=== PATIENT | male | born 1990 | race African-American/Black ===

== ENCOUNTER 2017-05-16 13:02 | Inpatient (IN) | payer MEDICAID, SELFPAY ==
[~2017-05-16] VITALS: Ht 167.6 cm; Wt 76.7 kg
[~2017-05-16 13:02] MED LIST: DILANTIN100 MG ORAL
[2017-05-16 13:29] VITALS: BP 117/81
[2017-05-16 13:51] LABS: BASOPHILS % (AUTO) 0.5 % (0.0-2.0); EOSINOPHILS % (AUTO) 10.6 % (0.0-3.0); LYMPHOCYTES % (AUTO) 27.9 % (20.0-45.0); MEAN CORPUSCULAR HEMOGLOBIN 28.1 PG (27.0-31.0); MEAN CORPUSCULAR HGB CONC 31.4 G/DL (32.0-36.0); MEAN CORPUSCULAR VOLUME 89 FL (80-99); MEAN PLATELET VOLUME 6.7 FL (6.5-10.1); MONOCYTES % (AUTO) 7.5 % (1.0-10.0); NEUTROPHILS % (AUTO) 53.4 % (45.0-75.0); PLATELET COUNT 510 K/UL (150-450); RED BLOOD COUNT 3.22 M/UL (4.70-6.10); RED CELL DISTRIBUTION WIDTH 15.9 % (11.6-14.8); WHITE BLOOD COUNT 11.6 K/UL (4.8-10.8)
[2017-05-16 14:09] LABS: ALANINE AMINOTRANSFERASE 103 U/L (12-78); ALBUMIN/GLOBULIN RATIO 0.3 (1.0-2.7); ANION GAP 10 mmol/L (5-15); ASPARTATE AMINO TRANSFERASE 175 U/L (15-37); CALCIUM 9.6 MG/DL (8.5-10.1); CARBON DIOXIDE 26 MMOL/L (21-32); CHLORIDE 111 MMOL/L (98-107); CREATININE 0.9 MG/DL (0.55-1.30); GLOMERULAR FILTRATION RATE > 60 mL/min (>60); POTASSIUM 3.9 MMOL/L (3.5-5.1); SODIUM 146 MMOL/L (136-145); TOTAL PROTEIN 8.7 G/DL (6.4-8.2)
[2017-05-16 14:21] LABS: CKMB 3.2 NG/ML (0.0-3.6); INR 1.1 (0.9-1.1); LIPASE 229 U/L (73-393); PROTHROMBIN TIME 11.4 SEC (9.30-11.50)
[2017-05-16] MEDS ORDERED: COLACE100 MG GT (14:55)
[2017-05-16 15:00] VITALS: BP 105/66
[2017-05-16] MEDS ORDERED: DESMOPRESS4 MCG/1 ML SUBQ (15:13)
[2017-05-16] MEDS ORDERED: DULCOLAX10 MG RC (15:14)
[2017-05-16] MEDS ORDERED: LOVENOX10 M4 SUBQ (15:14)
--- NOTE | 2017-05-16 15:15 | Diagnostic Imaging Report ---
Indications: Altered mental status. Soft tissue protrusion in skull Technique: Spiral acquisitions obtained through the brain. Angled axial and coronal 5 x 5 mm slices were reconstructed. Total dose length product 1492 mGycm. CTDI vol(s) 70 mGy. Dose reduction achieved using automated exposure control Comparison: None Findings: There is diffuse cerebral edema. In particular, the cerebellum and brain stem are very low in attenuation, with essentially no dumont-white differentiation. The supratentorial structures are also extremely low in attenuation, but there is some preservation of the dumont-white differentiation. There is complete obliteration of the ventricles and extra-axial CSF spaces. Higher attenuation is seen in the basilar cisterns. While it is possible that this represents subarachnoid blood, is more likely represents normal structures such as there are similar to what against the unusually low attenuation surrounding brain parenchyma. No evidence of subdural or intraparenchymal blood. There is scalp soft tissue swelling in the left high parietal region extending to the midline. This is slightly lower in attenuation and then acute scalp hematoma. The calvarium is intact. There is extensive opacification of the ethmoid and sphenoid sinuses. There is mucosal disease of the bilateral maxillary sinuses. There is extensive probably tissue in the posterior nasopharynx. The orbits are unremarkable. Impression: Findings compatible with diffuse cerebral edema. Complete obliteration of the ventricles and extra-axial CSF spaces. Likely uncal herniation bilaterally Apparent high attenuation material in the basilar cisterns, most likely represents normal structures silhouetted against adjacent low-attenuation brain parenchyma and therefore appearing to be higher in attenuation, the possibility of subarachnoid blood cannot completely ruled out Apparent left parietal scalp hematoma. This is lower in attenuation than the usual acute scalp hematoma, so may be subacute in nature Extensive sinus disease Critical value findings communicated by phone to Dr. Webb in the emergency room at [address] scanner at [facility] is accredited by the [employer] and the scans are performed using protocols designed to limit radiation exposure to as low as reasonably achievable to attain images of sufficient resolution adequate for diagnostic evaluation.
[2017-05-16] MEDS ORDERED: MILK OF MA400 MG/51 GT (15:19)
[2017-05-16] MEDS ORDERED: HYDRALAZINE HCL10 MG ORAL (15:19)
[2017-05-16] MEDS ORDERED: FLEET ENEMA133 ML RECTAL (15:19)
[2017-05-16] MEDS ORDERED: LEVETIRACE100 MG/1 M GT (15:19)
[2017-05-16] MEDS ORDERED: MULTI-DELYN237 ML GT (15:23)
[2017-05-16] MEDS ORDERED: PANTOPRAZOLE SO40 MG GT (15:24)
[2017-05-16] MEDS ORDERED: UTI-STAT L3875 MG/31 GT (15:24)
[2017-05-16] MEDS ORDERED: ACETAMINOP160 MG/51 GT (15:24)
--- NOTE | 2017-05-16 15:24 | Emergency Room Report ---
History of Present Illness General Chief Complaint: General Complaint Source: Medical Record Present Illness HPI Patient presents emergency department today complaint soft tissue swelling in the posterior occiput area. Patient apparently had a recent seizure followed by an anoxic brain injury. Patient currently is trach/vent. Patient's primary care physician is Dr. Lund. Patient presents emergency department for further evaluation. Symptoms noted to be severe. No further history is available from the patient as patient is nonverbal treatment at. Patient history was obtained from medical records. Apparently patient also has history of seizures. No other modifying factors. No other associated signs and symptoms. No other complaints were noted. Allergies: Coded Allergies: No Known Allergies (Unverified , 01/27/14) Patient History Past Medical History: asthma, seizures Past Surgical History: none Pertinent Family History: none Social History: Denies: smoking, alcohol use, drug use Reviewed Nursing Documentation: PMH: Agreed, PSxH: Agreed Nursing Documentation-PMH Past Medical History: No History, Except For Hx Asthma: Yes Hx Neurological Problems: Yes Hx Seizures: Yes Review of Systems All Other Systems: limited - poor mentation Physical Exam Vital Signs Date Time Temp Pulse Resp B/P (MAP) Pulse Ox O2 Delivery O2 Flow Rate FiO2 05/16/17 12:56 100 18 150/75 97 Room Air 05/16/17 12:59 4.0 05/16/17 13:00 35 05/16/17 13:29 98.8 Sp02 EP Interpretation: reviewed, normal General Appearance: other - patient is ill Head: atraumatic Eyes: bilateral eye normal inspection ENT: normal pharynx, moist mucus membranes Neck: full range of motion, supple Respiratory: respiratory distress, decreased breath sounds, accessory muscle use Cardiovascular #1: normal peripheral pulses, regular rate, rhythm Gastrointestinal: non tender, soft, no mass Genitourinary: no CVA tenderness Musculoskeletal: normal inspection Neurologic: other - patient is nonverbal and not responsibe Psychiatric: other - unable to assess Skin: no rash Medical Decision Making Diagnostic Impression: Primary Impression: Seizure disorder Additional Impression: Hepatitis ER Course Patient presents emergency department today with possible posterior occiput swelling. Exam is nonspecific. Differential diagnoses include recent trauma or bruising or edema. Given patient's presentation complicated history laboratory workup was obtained head CT was obtained. Head CT shows evidence of diffuse brain edema likely secondary to recent anoxic event. Patient's laboratory workup also shows evidence hepatitis. Therefore we'll obtain ultrasound the abdomen. Case was discussed in detail with Dr. Lund who knows the patient well. Patient will be admitted to the [facility] for further treatment. Labs Test 05/16/17 13:23 White Blood Count 11.6 K/UL (4.8-10.8) Red Blood Count 3.22 M/UL (4.70-6.10) Hemoglobin 9.0 G/DL (14.2-18.0) Hematocrit 28.7 % (42.0-52.0) Mean Corpuscular Volume 89 FL (80-99) Mean Corpuscular Hemoglobin 28.1 PG (27.0-31.0) Mean Corpuscular Hemoglobin Concent 31.4 G/DL (32.0-36.0) Red Cell Distribution Width 15.9 % (11.6-14.8) Platelet Count 510 K/UL (150-450) Mean Platelet Volume 6.7 FL (6.5-10.1) Neutrophils (%) (Auto) 53.4 % (45.0-75.0) Lymphocytes (%) (Auto) 27.9 % (20.0-45.0) Monocytes (%) (Auto) 7.5 % (1.0-10.0) Eosinophils (%) (Auto) 10.6 % (0.0-3.0) Basophils (%) (Auto) 0.5 % (0.0-2.0) Prothrombin Time 11.4 SEC (9.30-11.50) Prothromb Time International Ratio 1.1 (0.9-1.1) Activated Partial Thromboplast Time 40 SEC (23-33) Sodium Level 146 MMOL/L (136-145) Potassium Level 3.9 MMOL/L (3.5-5.1) Chloride Level 111 MMOL/L (98-107) Carbon Dioxide Level 26 MMOL/L (21-32) Anion Gap 10 mmol/L (5-15) Blood Urea Nitrogen 21 mg/dL (7-18) Creatinine 0.9 MG/DL (0.55-1.30) Estimat Glomerular Filtration Rate > 60 mL/min (>60) Glucose Level 104 MG/DL (74-106) Calcium Level 9.6 MG/DL (8.5-10.1) Total Bilirubin 0.2 MG/DL (0.2-1.0) Aspartate Amino Transf (AST/SGOT) 175 U/L (15-37) Alanine Aminotransferase (ALT/SGPT) 103 U/L (12-78) Alkaline Phosphatase 791 U/L (46-116) Total Creatine Kinase 185 U/L (26-308) Creatine Kinase MB 3.2 NG/ML (0.0-3.6) Creatine Kinase MB Relative Index 1.7 Total Protein 8.7 G/DL (6.4-8.2) Albumin 2.0 G/DL (3.4-5.0) Globulin 6.7 g/dL Albumin/Globulin Ratio 0.3 (1.0-2.7) Lipase 229 U/L (73-393) EKG Diagnostic Results Rate: normal Rhythm: NSR ST Segments: no acute changes Rhythm Strip Diag. Results EP Interpretation: yes Rate: 90s Rhythm: NSR, no PVC's, no ectopy Chest X-Ray Diagnostic Results Chest X-Ray Diagnostic Results : # of Views/Limited/Complete: 1 View Indication: Shortness of Breath EP Interpretation: Yes Interpretation: no consolidation, no effusion, no pneumothorax, no acute cardiopulmonary disease Impression: No acute disease Electronically Signed by: Electronically signed by Amanda Thomson MD CT/MRI/US Diagnostic Results CT/MRI/US Diagnostic Results : Imaging Test Ordered: head CT: Positive edema Last Vital Signs Date Time Temp Pulse Resp B/P (MAP) Pulse Ox O2 Delivery O2 Flow Rate FiO2 05/16/17 14:52 103 21 35 05/16/17 13:40 Mechanical Ventilator 4.0 05/16/17 13:29 98.8 117/81 97 Status: unchanged Disposition: ADMITTED INPATIENT Condition: Serious Referrals: ZAYNAB LUND (PCP) AMANDA THOMSON M.D. May 16, 2017 15:24
[2017-05-16] MEDS ORDERED: VITAMIN C500 MG/11 PO (15:25)
[2017-05-16] MEDS ORDERED: ZINC SULFATE220 M1 GT (15:25)
[2017-05-16] MEDS ORDERED: Morphine Sulfate 4mg/ml Inj IVP PRN (15:30)
[2017-05-16] MEDS ORDERED: Miralax 17gm pkt ORAL PRN (15:30)
[2017-05-16] MEDS ORDERED: LORazepam Inj 2mg/ml 1ml IV PRN (15:30)
[2017-05-16] MEDS ORDERED: Albuterol/Ipratropium 3ml neb HHN PRN (15:30)
--- NOTE | 2017-05-16 15:30 | Diagnostic Imaging Report ---
Indication: PAIN, abnormal liver function tests. Abnormal renal function tests Technique: Higgins-scale and duplex images of the upper abdomen were obtained Comparison: None Findings: Gallbladder is unremarkable, without stones, wall thickening, nor pericholecystic fluid. Sonographic Gusman's sign is negative. Common bile duct measures 2 mm in diameter. No intrahepatic biliary ductal dilatation. Liver demonstrates normal echogenicity, no focal abnormality. Is somewhat enlarged. Portal vein and hepatic veins are patent. Pancreas is unremarkable. Spleen is unremarkable. Left kidney measures 11.1 cm in length. Right kidney measures 10.3 cm length. Both kidneys demonstrate normal echogenicity. There is no hydronephrosis. No focal abnormality . Non-aneurysmal abdominal aorta . Impression: Hepatomegaly Negative for gallstones or dilated ducts or other significant abnormality
--- NOTE | 2017-05-16 15:44 | Diagnostic Imaging Report ---
Indication: COUGH Technique: One view of the chest Comparison: none Findings: There is a tracheostomy. Right perihilar opacity reflect focal consolidation or atelectasis. The remainder the lungs and pleural spaces are clear. There is mild thoracic scoliotic deformity Impression: Right perihilar atelectasis or focal consolidation No acute process otherwise Tracheostomy
[2017-05-16 15:48] VITALS: BP 118/70
[2017-05-16 17:05] VITALS: BP 90/51
[2017-05-16] MEDS: Zosyn 3.375gm/50ml Premix 50 ML IVPB SCH (19:21)
[2017-05-16] MEDS: Vancomycin 1250mg/D5W 250ml IVPB SCH (19:44)
[2017-05-16 20:00] VITALS: BP 120/79
[2017-05-16] MEDS: Phenytoin 100mg cap ORAL SCH (21:18)
[2017-05-16] MEDS: Heparin 5000 units/ml inj SUBQ SCH (21:20)
[2017-05-17] VITALS: BP 105/70
[2017-05-17] MEDS: Zosyn 3.375gm/50ml Premix 50 ML IVPB SCH ×4 (00:01→23:48)
[2017-05-17 04:00] VITALS: BP 106/60
[2017-05-17 04:47] LABS: BASOPHILS % (AUTO) 0.4 % (0.0-2.0); EOSINOPHILS % (AUTO) 14.8 % (0.0-3.0); LYMPHOCYTES % (AUTO) 26.5 % (20.0-45.0); MEAN CORPUSCULAR HEMOGLOBIN 27.8 PG (27.0-31.0); MEAN CORPUSCULAR HGB CONC 31.4 G/DL (32.0-36.0); MEAN CORPUSCULAR VOLUME 89 FL (80-99); MEAN PLATELET VOLUME 6.7 FL (6.5-10.1); MONOCYTES % (AUTO) 7.7 % (1.0-10.0); NEUTROPHILS % (AUTO) 50.6 % (45.0-75.0); PLATELET COUNT 418 K/UL (150-450); RED BLOOD COUNT 2.88 M/UL (4.70-6.10); RED CELL DISTRIBUTION WIDTH 15.9 % (11.6-14.8); WHITE BLOOD COUNT 7.7 K/UL (4.8-10.8)
[2017-05-17 05:15] LABS: ANION GAP 13 mmol/L (5-15); CALCIUM 9.4 MG/DL (8.5-10.1); CARBON DIOXIDE 24 MMOL/L (21-32); CHLORIDE 113 MMOL/L (98-107); CREATININE 0.9 MG/DL (0.55-1.30); GLOMERULAR FILTRATION RATE > 60 mL/min (>60); POTASSIUM 3.4 MMOL/L (3.5-5.1); SODIUM 150 MMOL/L (136-145)
[2017-05-17 08:00] VITALS: BP 141/98
[2017-05-17] MEDS: Vancomycin 1250mg/D5W 250ml IVPB SCH (08:11)
[2017-05-17] MEDS: Pantoprazole Inj IV SCH (08:49)
[2017-05-17] MEDS: Heparin 5000 units/ml inj SUBQ SCH ×2 (08:51→21:00)
[2017-05-17] MEDS ORDERED: KCl 10% 20 mEq/15ml liquid GT ONE (10:00)
[2017-05-17 12:00] VITALS: BP 114/69
--- NOTE | 2017-05-17 14:41 | Cardiology Report ---
APPROVED REPORT EKG Measurement Heart [id number] Normal sinus rhythm Prolonged QT Abnormal ECG
--- NOTE | 2017-05-17 15:03 | History and Physical ---
History of Present Illness General Date patient seen: May 17, 2017 Time patient seen: 12:30 Reason for Hospitalization: occipital area swelling Present Illness HPI 27 y/o male with PMH of VDRF, trach, anoxic encephalopathy, dysphagia, G tube, seizure disorder was sent from subacute facility for evaluation Patient with recent hx of seizure resulting in arrest x 20 min with subsequent anoxic brain injury and subsequent vent/trach/G tube workup in ED revealed leukocytosis-11.6 anemia-9.0/28.7 Na -146 BUN-21 and creat- 0.9 CT head with evidence of diffused cerebral edema elevated LFT AST-175 ALT-103 low albumin-2.0 CXR with R perihilar atelectasis vs consolidation patient was admitted for further management this am HH down to 8.0/25.5 Na up to 150, K-3.4 Allergies: Coded Allergies: No Known Allergies (Unverified , 01/27/14) Medication History Scheduled Desmopressin Acetate (Desmopressin Acetate), 4 MCG SUBQ EVERY 12 HOURS, ( Reported) Docusate Sodium* (Colace*), 100 MG GT DAILY, (Reported) Enoxaparin* (Lovenox*), 40 MG SUBQ BID, (Reported) Levetiracetam* (Levetiracetam*), 1,500 MG GT BID, (Reported) Multivitamin Liquid* (Multi-Delyn*), 5 ML GT DAILY, (Reported) Na Phos,M-B/Na Phos,Di-Ba* (Fleet Enema*), 133 ML RECTAL DAILY, (Reported) Pantoprazole* (Pantoprazole*), 40 MG GT DAILY, (Reported) Phenytoin Sodium Extended* (Dilantin*), 300 MG ORAL BEDTIME Vit C/Ascorbate Ca/Ascorb Sod (Vitamin C 500 Mg/15 Ml Liquid), 500 MG PO DAILY, (Reported) Zinc Sulfate (Zinc Sulfate*), 220 MG GT DAILY, (Reported) Scheduled PRN Acetaminophen* (Acetaminophen*), 640 MG GT Q6H PRN for Mild Pain/Temp > 100.5, ( Reported) Bisacodyl (Dulcolax), 10 MG RC NEEDED PRN for Constipation, (Reported) Hydralazine Hcl* (Hydralazine Hcl*), 20 MG ORAL EVERY 6 HOURS PRN for For High Blood Pressure, (Reported) Magnesium Hydroxide* (Milk Of Magnesia*), 30 ML GT DAILY PRN for Constipation, ( Reported) Miscellaneous Medications Cran/Vitc/Mannose/Inulin/Brom (Uti-Stat Liquid), 3,875 MG GT, (Reported) Patient History Healthcare decision maker Marielle Thomas - Resuscitation status Full Code Advanced Directive on File No Review of Systems ROS Narrative patient is unable to provide any history due to anoxic brain injury Physical Exam General Appearance: other - bedridden, vent dependent male in NAD Lines, tubes and drains: peripheral, trach, gtube Respiratory/Chest: lungs clear Cardiovascular/Chest: normal rate, regular rhythm - SR on tele Abdomen: normal bowel sounds, non tender, soft, feeding tube - G tube Skin Exam: other - tattoos all over the body Neurologic: abnormal gait - bedridden, other - comatose, foot drop bilaterally Last 24 Hour Vital Signs Date Time Temp Pulse Resp B/P (MAP) Pulse Ox O2 Delivery O2 Flow Rate FiO2 05/17/17 13:30 78 14 35 05/17/17 12:21 78 05/17/17 12:00 35 05/17/17 12:00 95.9 81 14 114/69 100 Mechanical Ventilator 35 05/17/17 11:30 74 14 35 05/17/17 09:30 75 14 35 05/17/17 08:00 95.4 80 14 141/98 100 Mechanical Ventilator 35 05/17/17 08:00 75 05/17/17 08:00 35 05/17/17 07:28 73 14 35 05/17/17 05:28 82 14 35 05/17/17 04:00 35 05/17/17 04:00 98.5 87 16 106/60 87 Mechanical Ventilator 87 87 05/17/17 03:51 79 05/17/17 02:49 86 14 35 05/17/17 01:07 81 14 35 05/17/17 00:00 35 05/17/17 00:00 98.2 83 18 105/70 100 Mechanical Ventilator 83 83 05/16/17 23:41 80 05/16/17 22:43 83 14 35 05/16/17 21:20 91 16 35 05/16/17 20:06 97.5 91 16 100 Mechanical Ventilator 91 91 05/16/17 20:00 35 05/16/17 20:00 97.5 91 16 120/79 100 Mechanical Ventilator 91 91 05/16/17 19:51 86 05/16/17 19:00 85 14 35 05/16/17 17:05 96.6 94 18 90/51 100 Mechanical Ventilator 35 100 94 05/16/17 16:45 112 05/16/17 16:31 95 17 35 05/16/17 15:48 98.8 86 18 118/70 100 Mechanical Ventilator 4.0 35 91 05/16/17 15:41 91 18 118/70 100 Mechanical Ventilator 35 05/16/17 15:00 93 16 105/66 100 Nasal Cannula 4.0 35 05/16/17 14:52 103 21 35 Intake and Output 05/17/17 05/18/17 19:00 07:00 Intake Total 660.000 ml Balance 660.000 ml Intake IV Total 300.000 ml Tube Feeding 120 ml Other 240 ml Laboratory Tests Test 05/17/17 04:00 White Blood Count 7.7 K/UL (4.8-10.8) Red Blood Count 2.88 M/UL (4.70-6.10) L Hemoglobin 8.0 G/DL (14.2-18.0) L Hematocrit 25.5 % (42.0-52.0) L Mean Corpuscular Volume 89 FL (80-99) Mean Corpuscular Hemoglobin 27.8 PG (27.0-31.0) Mean Corpuscular Hemoglobin Concent 31.4 G/DL (32.0-36.0) L Red Cell Distribution Width 15.9 % (11.6-14.8) H Platelet Count 418 K/UL (150-450) Mean Platelet Volume 6.7 FL (6.5-10.1) Neutrophils (%) (Auto) 50.6 % (45.0-75.0) Lymphocytes (%) (Auto) 26.5 % (20.0-45.0) Monocytes (%) (Auto) 7.7 % (1.0-10.0) Eosinophils (%) (Auto) 14.8 % (0.0-3.0) H Basophils (%) (Auto) 0.4 % (0.0-2.0) Sodium Level 150 MMOL/L (136-145) H Potassium Level 3.4 MMOL/L (3.5-5.1) L Chloride Level 113 MMOL/L (98-107) H Carbon Dioxide Level 24 MMOL/L (21-32) Anion Gap 13 mmol/L (5-15) Blood Urea Nitrogen 21 mg/dL (7-18) H Creatinine 0.9 MG/DL (0.55-1.30) Estimat Glomerular Filtration Rate > 60 mL/min (>60) Glucose Level 105 MG/DL (74-106) Calcium Level 9.4 MG/DL (8.5-10.1) Phosphorus Level 5.0 MG/DL (2.5-4.9) H Albumin 1.8 G/DL (3.4-5.0) L Height (Feet): 5 Height (Inches): 6.00 Weight (Pounds): 182 Medications Current Medications Medications (Trade) Dose Ordered Sig/Quang Route PRN Reason Start Time Stop Time Status Last Admin Dose Admin Acetaminophen (Tylenol) 650 mg Q4H PRN ORAL fever (temp > 100.5F) 05/16/17 15:30 06/15/17 15:29 Albuterol/ Ipratropium (Albuterol/ Ipratropium) 3 ml Q4H PRN HHN Shortness of Breath 05/16/17 15:30 05/21/17 15:29 Dextrose (Dextrose 50%) STAT PRN IV Hypoglycemia 05/16/17 15:30 06/15/17 15:29 Heparin Sodium (Porcine) (Heparin 5000 units/ml) 5,000 units EVERY 12 HOURS SUBQ 05/16/17 21:00 06/15/17 20:59 05/17/17 08:51 Lorazepam (Ativan 2mg/ml 1ml) 2 mg Q2H PRN IV For Anxiety 05/16/17 15:30 05/23/17 15:29 Morphine Sulfate (Morphine Sulfate) 4 mg Q4H PRN IVP Severe Pain (Pain Scale 7-10) 05/16/17 15:30 05/23/17 15:29 Ondansetron HCl (Zofran) 4 mg Q6H PRN IVP Nausea & Vomiting 05/16/17 15:30 06/15/17 15:29 Pantoprazole (Protonix) 40 mg DAILY IV 05/17/17 09:00 06/16/17 08:59 05/17/17 08:49 Phenytoin (Dilantin) 300 mg BEDTIME ORAL 05/16/17 21:00 06/15/17 20:59 05/16/17 21:18 Piperacillin/ Tazobactam/ Dextrose 50 ml @ 12.5 mls/hr Q8HR@0000,0800,1600 IVPB 05/16/17 16:00 05/23/17 15:59 05/17/17 08:10 Polyethylene Glycol (Miralax) 17 gm DAILYPRN PRN ORAL Constipation 05/16/17 15:30 06/15/17 15:29 Vancomycin HCl (Vanco rx to dose) 1 ea DAILY PRN MISC PER RX PROTOCOL 05/16/17 15:45 06/15/17 15:44 Vancomycin HCl/ Dextrose 250 ml @ 166.667 mls/hr Q12HR@0800,2000 IVPB 05/16/17 20:00 05/21/17 19:59 05/17/17 08:11 Assessment/Plan Assessment/Plan ASSESSMENT probable sepsis possible PNA diffused cerebral edema seizure disorder VDRF/trach anoxic encephalopathy anemia dehydration transaminitis hypernatremia hypokalemia possible protein calorie malnutrition dysphagia, G tube PLAN OF CARE [facility] neuro and ID eval vent support trach care pulmonary toilet baseline ABG and titrate as needed abx, fup wtih cx fup wtih CXR Venous Duplex BLE CT head with evidence of diffused cerebral edema start Decadron seizure precautions continue Dilantin abdominal US + HM, no gallstones, no dilated ducts hepatitis panel trend LFT monitor HH bowel regimen increase free water via G tube GT feeding strict aspiration precautions, monitor tolerance replace K wound nurse eval dietary eval check prealbumin case discussed and evaluated by supervising physician Fausto ([facility])Isabel NP May 17, 2017 15:02
[2017-05-17 16:00] VITALS: BP 117/63
--- NOTE | 2017-05-17 17:05 | Consultation ---
Consult Note Consult Note [id number] KENNEDY MATOS M.D. May 17, 2017 17:05
[2017-05-17] MEDS ORDERED: Tubing IV Secondary IV ONE (17:42)
[2017-05-17] MEDS ORDERED: Sterile Water Irrig 1000ml IRRIG ONE (17:42)
[2017-05-17] MEDS ORDERED: NS 275ml ONE (17:42)
[2017-05-17] MEDS: Dexamethasone 4mg/ml vial IVP SCH ×2 (17:47→23:48)
[2017-05-17] MEDS: Sulfacetamide 10% Opth 15ml Btl BOTH EYES SCH ×2 (17:47→21:18)
[2017-05-17 20:00] VITALS: BP 116/69
[2017-05-17] MEDS: Phenytoin 100mg cap ORAL SCH (21:17)
[2017-05-17] MEDS ORDERED: Vancomycin 1 GM in D5W 275 ML IV SCH (23:00)
[2017-05-18] VITALS: BP 148/92
[2017-05-18 04:00] VITALS: BP 161/90
[2017-05-18] MEDS: Dexamethasone 4mg/ml vial IVP SCH ×4 (05:40→23:39)
[2017-05-18 07:35] LABS: MEAN CORPUSCULAR HEMOGLOBIN 27.2 PG (27.0-31.0); MEAN CORPUSCULAR HGB CONC 30.2 G/DL (32.0-36.0); MEAN CORPUSCULAR VOLUME 90 FL (80-99); MEAN PLATELET VOLUME 7.2 FL (6.5-10.1); PLATELET COUNT 574 K/UL (150-450); RED BLOOD COUNT 3.62 M/UL (4.70-6.10); RED CELL DISTRIBUTION WIDTH 16.6 % (11.6-14.8); WHITE BLOOD COUNT 15.7 K/UL (4.8-10.8)
--- NOTE | 2017-05-18 07:49 | Pulmonology Progress Note ---
Assessment/Plan Assessment/Plan ASSESSMENT probable sepsis possible PNA diffused cerebral edema seizure disorder VDRF/trach anoxic encephalopathy anemia dehydration hyper Na ( likely due to dehydration and free water deficit0 transaminitis possible protein calorie malnutrition dysphagia, G tube PLAN OF CARE [facility] IVF with dextrose, vent support trach care pulmonary toilet baseline ABG this am stable on current settings, keep settings as is and and titrate as needed abx, fup wtih cx ID eval appreciated blood cx preliminary negative leukocytosis today possibly due to steroids ( started yesterday, 05/17) fup wtih CXR Venous Duplex BLE CT head with evidence of diffused cerebral edema started on Decadron 05/17 neuro eval pending seizure precautions continue Dilantin IVF with dextrose increase water flushes via G tube Kayexalate monitor renal parameters, lytes abdominal US + HM, no gallstones, no dilated ducts hepatitis panel trend LFT , small trend down monitor HH anemia w/up bowel regimen GT feeding strict aspiration precautions, monitor tolerance wound nurse eval dietary eval check prealbumin case discussed and evaluated by supervising physician Subjective Allergies: Coded Allergies: No Known Allergies (Unverified , 01/27/14) Subjective leukocytosis this am, afebrile no signs of respiratory distress on current settings K-5.5 Na- 164 Objective Last 24 Hour Vital Signs Date Time Temp Pulse Resp B/P (MAP) Pulse Ox O2 Delivery O2 Flow Rate FiO2 05/18/17 07:18 97 14 35 05/18/17 05:11 97 14 35 05/18/17 04:00 96.0 91 14 161/90 100 Mechanical Ventilator 35 05/18/17 04:00 35 05/18/17 04:00 91 05/18/17 03:30 96 14 35 05/18/17 01:23 96 14 35 05/18/17 00:00 35 05/18/17 00:00 96.3 98 14 148/92 100 Mechanical Ventilator 35 05/18/17 00:00 98 05/17/17 23:30 94 13 35 05/17/17 21:30 93 14 35 05/17/17 20:00 35 05/17/17 20:00 88 05/17/17 20:00 96.0 88 14 116/69 100 Mechanical Ventilator 35 05/17/17 19:31 93 14 Mechanical Ventilator 35 05/17/17 19:22 87 14 35 05/17/17 17:03 79 14 35 05/17/17 16:00 95.7 84 14 117/63 100 Mechanical Ventilator 35 05/17/17 16:00 80 05/17/17 16:00 35 05/17/17 15:27 80 14 35 05/17/17 13:30 78 14 35 05/17/17 12:21 78 05/17/17 12:00 35 05/17/17 12:00 95.9 81 14 114/69 100 Mechanical Ventilator 35 05/17/17 11:30 74 14 35 05/17/17 09:30 75 14 35 05/17/17 08:00 95.4 80 14 141/98 100 Mechanical Ventilator 35 05/17/17 08:00 75 05/17/17 08:00 35 Objective General Appearance: comatose, bedridden, vent dependent male in NAD, vent AC 600-14-35% Lines, tubes and drains: peripheral, trach, Shiley # 8, secretions small, yellow, thick G tube Respiratory/Chest: lungs clear Cardiovascular/Chest: normal rate, regular rhythm - SR on tele Abdomen: normal bowel sounds, non tender, soft, feeding tube - G tube Skin Exam: tattoos all over the body Neurologic: abnormal gait/ bedridden, comatose , foot drop bilaterally Microbiology Date/Time Source Procedure Growth Status 05/16/17 13:28 Blood Not Otherwise Specified Blood Culture - Preliminary NO GROWTH AFTER 24 HOURS Resulted 05/16/17 13:23 Blood Not Otherwise Specified Blood Culture - Preliminary NO GROWTH AFTER 24 HOURS Resulted Laboratory Tests 05/18/17 06:35: White Blood Count 15.7#H, Red Blood Count 3.62L, Hemoglobin 9.9L, Hematocrit 32.7L, Mean Corpuscular Volume 90, Mean Corpuscular Hemoglobin 27.2, Mean Corpuscular Hemoglobin Concent 30.2L, Red Cell Distribution Width 16.6H, Platelet Count 574H, Mean Platelet Volume 7.2, Neutrophils (%) (Auto) , Lymphocytes (%) (Auto) , Monocytes (%) (Auto) , Eosinophils (%) (Auto) , Basophils (%) (Auto) , Neutrophils % (Manual) [Pending], Lymphocytes % (Manual) [Pending], Platelet Estimate [Pending], Platelet Morphology [Pending], Sodium Level [Pending], Potassium Level [Pending], Chloride Level [Pending], Carbon Dioxide Level [Pending], Blood Urea Nitrogen [Pending], Creatinine [Pending], Estimat Glomerular Filtration Rate [Pending], Glucose Level [Pending], Calcium Level [Pending], Iron Level [Pending], Unsaturated Iron Binding [Pending], Ferritin [Pending], Total Bilirubin [Pending], Aspartate Amino Transf (AST/SGOT ) [Pending], Alanine Aminotransferase (ALT/SGPT) [Pending], Alkaline Phosphatase [Pending], Total Protein [Pending], Albumin [Pending], Globulin [ Pending], Prealbumin [Pending], Vitamin B12 Level [Pending], Phenytoin (Dilantin ) Level [Pending], Hepatitis A IgM Antibody [Pending], Hepatitis B Surface Antigen [Pending], Hepatitis B Core IgM Antibody [Pending], Hepatitis C Antibody [Pending] Current Medications Medications (Trade) Dose Ordered Sig/Quang Route PRN Reason Start Time Stop Time Status Last Admin Dose Admin Acetaminophen (Tylenol) 650 mg Q4H PRN ORAL fever (temp > 100.5F) 05/16/17 15:30 06/15/17 15:29 Albuterol/ Ipratropium (Albuterol/ Ipratropium) 3 ml Q4H PRN HHN Shortness of Breath 05/16/17 15:30 05/21/17 15:29 Dexamethasone Sodium Phosphate (Decadron 4mg/ml vial) 4 mg Q6HR IVP 05/17/17 18:00 06/16/17 17:59 05/18/17 05:40 Dextrose (Dextrose 50%) STAT PRN IV Hypoglycemia 05/16/17 15:30 06/15/17 15:29 Lorazepam (Ativan 2mg/ml 1ml) 2 mg Q2H PRN IV For Anxiety 05/16/17 15:30 05/23/17 15:29 Morphine Sulfate (Morphine Sulfate) 4 mg Q4H PRN IVP Severe Pain (Pain Scale 7-10) 05/16/17 15:30 05/23/17 15:29 Ondansetron HCl (Zofran) 4 mg Q6H PRN IVP Nausea & Vomiting 05/16/17 15:30 06/15/17 15:29 Pantoprazole (Protonix) 40 mg DAILY IV 05/17/17 09:00 06/16/17 08:59 05/17/17 08:49 Phenytoin (Dilantin) 300 mg BEDTIME ORAL 05/16/17 21:00 06/15/17 20:59 05/17/17 21:17 Piperacillin/ Tazobactam/ Dextrose 50 ml @ 12.5 mls/hr Q8HR@0000,0800,1600 IVPB 05/16/17 16:00 05/23/17 15:59 05/17/17 23:48 Polyethylene Glycol (Miralax) 17 gm DAILYPRN PRN ORAL Constipation 05/16/17 15:30 06/15/17 15:29 Sulfacetamide Sodium (Sodium Sulamyd) 1 drop QID BOTH EYES 05/17/17 18:00 05/24/17 17:59 05/17/17 21:18 Isabel Lambert NP ([facility]) May 18, 2017 07:49
[2017-05-18 08:00] VITALS: BP 130/70
[2017-05-18 08:06] LABS: ALANINE AMINOTRANSFERASE 107 U/L (12-78); ALBUMIN/GLOBULIN RATIO 0.3 (1.0-2.7); ANION GAP 13 mmol/L (5-15); ASPARTATE AMINO TRANSFERASE 117 U/L (15-37); CALCIUM 10.7 MG/DL (8.5-10.1); CARBON DIOXIDE 24 MMOL/L (21-32); CHLORIDE 127 MMOL/L (98-107); CREATININE 1.2 MG/DL (0.55-1.30); FERRITIN 667 NG/ML (8-388); GLOMERULAR FILTRATION RATE > 60 mL/min (>60); POTASSIUM 5.5 MMOL/L (3.5-5.1)
--- NOTE | 2017-05-18 08:07 | Infectious Diseases Prog Note ---
Assessment/Plan Assessment/Plan A; Pneumonia scalp hematoma Cerebral edema VDRF Anemia Anoxic encephalopathy P: Continue Zosyn Neurology evaluation is pending Subjective ROS Limited/Unobtainable: Yes Allergies: Coded Allergies: No Known Allergies (Unverified , 01/27/14) Objective Vital Signs Last 24 Hour Vital Signs Date Time Temp Pulse Resp B/P (MAP) Pulse Ox O2 Delivery O2 Flow Rate FiO2 05/18/17 07:18 97 14 35 05/18/17 05:11 97 14 35 05/18/17 04:00 96.0 91 14 161/90 100 Mechanical Ventilator 35 05/18/17 04:00 35 05/18/17 04:00 91 05/18/17 03:30 96 14 35 05/18/17 01:23 96 14 35 05/18/17 00:00 35 05/18/17 00:00 96.3 98 14 148/92 100 Mechanical Ventilator 35 05/18/17 00:00 98 05/17/17 23:30 94 13 35 05/17/17 21:30 93 14 35 05/17/17 20:00 35 05/17/17 20:00 88 05/17/17 20:00 96.0 88 14 116/69 100 Mechanical Ventilator 35 05/17/17 19:31 93 14 Mechanical Ventilator 35 05/17/17 19:22 87 14 35 05/17/17 17:03 79 14 35 05/17/17 16:00 95.7 84 14 117/63 100 Mechanical Ventilator 35 05/17/17 16:00 80 05/17/17 16:00 35 05/17/17 15:27 80 14 35 05/17/17 13:30 78 14 35 05/17/17 12:21 78 05/17/17 12:00 35 05/17/17 12:00 95.9 81 14 114/69 100 Mechanical Ventilator 35 05/17/17 11:30 74 14 35 05/17/17 09:30 75 14 35 Height (Feet): 5 Height (Inches): 6.00 Weight (Pounds): 182 HEENT: status post trach, other - conjunctival edema Respiratory/Chest: lungs clear, other - on ventilator Cardiovascular: tachycardia, other - peripheral line Abdomen: soft, non tender, other - GT feeding Extremities: no edema Skin: ulcers Neurologic/Psychiatric: unresponsiveness, other - coma Microbiology Date/Time Source Procedure Growth Status 05/16/17 13:28 Blood Not Otherwise Specified Blood Culture - Preliminary NO GROWTH AFTER 24 HOURS Resulted 05/16/17 13:23 Blood Not Otherwise Specified Blood Culture - Preliminary NO GROWTH AFTER 24 HOURS Resulted Laboratory Tests Test 05/18/17 06:35 White Blood Count 15.7 K/UL (4.8-10.8) #H Red Blood Count 3.62 M/UL (4.70-6.10) L Hemoglobin 9.9 G/DL (14.2-18.0) L Hematocrit 32.7 % (42.0-52.0) L Mean Corpuscular Volume 90 FL (80-99) Mean Corpuscular Hemoglobin 27.2 PG (27.0-31.0) Mean Corpuscular Hemoglobin Concent 30.2 G/DL (32.0-36.0) L Red Cell Distribution Width 16.6 % (11.6-14.8) H Platelet Count 574 K/UL (150-450) H Mean Platelet Volume 7.2 FL (6.5-10.1) Neutrophils (%) (Auto) % (45.0-75.0) Lymphocytes (%) (Auto) % (20.0-45.0) Monocytes (%) (Auto) % (1.0-10.0) Eosinophils (%) (Auto) % (0.0-3.0) Basophils (%) (Auto) % (0.0-2.0) Neutrophils % (Manual) Pending Lymphocytes % (Manual) Pending Platelet Estimate Pending Platelet Morphology Pending Sodium Level Pending Potassium Level Pending Chloride Level Pending Carbon Dioxide Level Pending Blood Urea Nitrogen Pending Creatinine Pending Estimat Glomerular Filtration Rate Pending Glucose Level Pending Calcium Level Pending Iron Level Pending Unsaturated Iron Binding Pending Ferritin Pending Total Bilirubin Pending Aspartate Amino Transf (AST/SGOT) Pending Alanine Aminotransferase (ALT/SGPT) Pending Alkaline Phosphatase Pending Total Protein Pending Albumin Pending Globulin Pending Prealbumin Pending Vitamin B12 Level Pending Phenytoin (Dilantin) Level Pending Hepatitis A IgM Antibody Pending Hepatitis B Surface Antigen Pending Hepatitis B Core IgM Antibody Pending Hepatitis C Antibody Pending Current Medications Medications (Trade) Dose Ordered Sig/Quang Route PRN Reason Start Time Stop Time Status Last Admin Dose Admin Acetaminophen (Tylenol) 650 mg Q4H PRN ORAL fever (temp > 100.5F) 05/16/17 15:30 06/15/17 15:29 Albuterol/ Ipratropium (Albuterol/ Ipratropium) 3 ml Q4H PRN HHN Shortness of Breath 05/16/17 15:30 05/21/17 15:29 Dexamethasone Sodium Phosphate (Decadron 4mg/ml vial) 4 mg Q6HR IVP 05/17/17 18:00 06/16/17 17:59 05/18/17 05:40 Dextrose (Dextrose 50%) STAT PRN IV Hypoglycemia 05/16/17 15:30 06/15/17 15:29 Lorazepam (Ativan 2mg/ml 1ml) 2 mg Q2H PRN IV For Anxiety 05/16/17 15:30 05/23/17 15:29 Morphine Sulfate (Morphine Sulfate) 4 mg Q4H PRN IVP Severe Pain (Pain Scale 7-10) 05/16/17 15:30 05/23/17 15:29 Ondansetron HCl (Zofran) 4 mg Q6H PRN IVP Nausea & Vomiting 05/16/17 15:30 06/15/17 15:29 Pantoprazole (Protonix) 40 mg DAILY IV 05/17/17 09:00 06/16/17 08:59 05/17/17 08:49 Phenytoin (Dilantin) 300 mg BEDTIME ORAL 05/16/17 21:00 06/15/17 20:59 05/17/17 21:17 Piperacillin/ Tazobactam/ Dextrose 50 ml @ 12.5 mls/hr Q8HR@0000,0800,1600 IVPB 05/16/17 16:00 05/23/17 15:59 05/17/17 23:48 Polyethylene Glycol (Miralax) 17 gm DAILYPRN PRN ORAL Constipation 05/16/17 15:30 06/15/17 15:29 Sulfacetamide Sodium (Sodium Sulamyd) 1 drop QID BOTH EYES 05/17/17 18:00 05/24/17 17:59 05/17/17 21:18 KELLY PARDO May 18, 2017 08:07
[2017-05-18 08:12] LABS: SODIUM 164 MMOL/L (136-145)
[2017-05-18] MEDS: Zosyn 3.375gm/50ml Premix 50 ML IVPB SCH ×3 (08:12→23:39)
[2017-05-18 08:21] LABS: ANISOCYTOSIS 1+; BAND NEUTROPHILS % (MANUAL) 0 % (0-8); BASOPHILS % (MANUAL) 0 % (0-2); EOSINOPHILS % (MANUAL) 0 % (0-3); HYPOCHROMASIA 1+; LYMPHOCYTES % (MANUAL) 7 % (20-45); NEUTROPHILS % (MANUAL) 89 % (45-75); PLATELET ESTIMATE INCREASED; PLATELET MORPHOLOGY NORMAL; TOTAL CELLS COUNTED 100
[2017-05-18] MEDS: Sulfacetamide 10% Opth 15ml Btl BOTH EYES SCH ×4 (08:30→20:48)
[2017-05-18] MEDS ORDERED: Sodium Polystyrene Sulfonate 15gm Powder ORAL ONE (08:30)
[2017-05-18] MEDS: Pantoprazole Inj IV SCH (08:30)
[2017-05-18 08:43] LABS: ABG ALLEN TEST POSITIVE; ABG PCO2 41.4 mmHg (35.0-45.0)
[2017-05-18 08:57] LABS: IRON 34 ug/dL (50-175); TOTAL IRON BINDING CAPACITY 207 ug/dL (250-450)
[2017-05-18] MEDS ORDERED: NS 275ml ONE (09:11)
--- NOTE | 2017-05-18 11:09 | Diagnostic Imaging Report ---
Indication: SOB Technique: CHEST 1 VIEW Comparison:05/16/2017 Findings: Endotracheal tube remains. Density in the right lung base, probably representing fluid in the major fissure and/or atelectasis is again seen unchanged. Left lung is clear. Impression: Right basilar density, probably representing fluid in the major fissure and/or atelectasis. Tracheostomy.
[2017-05-18 12:00] VITALS: BP 126/61
--- NOTE | 2017-05-18 13:46 | Wound Care Consultation ---
Wound Assessment Wound Assessment #1: Wound Number: 1 Wound Present on Admission: Yes New Wound: No Status Change of Wound: No Wound Location Body Site Modif: left, dorsal Wound Location Body Site: foot Wound Type: pressure ulcer Best Test: Does not Best Pressure Ulcer Stage: II Wound Thickness: Partial Thickness Wound Length: 2.5 Wound Width: 2.5 Wound Depth: less than 0.1 Percent of Wound [place]/Red: 100 Wound Drainage Amount: None Wound Drainage Odor: None/Absent Tissue Surrounding Wound: Erythemic Wound General Appearance: Reddened Wound Assessment #2: Wound Number: 2 Wound Present on Admission: Yes New Wound: No Status Change of Wound: No Wound Location Body Site Modif: right Wound Location Body Site: heel Wound Type: pressure ulcer Best Test: Does not Best Pressure Ulcer Stage: Unstageable Wound Thickness: Full Thickness Wound Length: 3.5 Wound Width: 3.5 Wound Depth: utd Percent of Wound [place]/Red: 50 Percent of Wound Bed Yellow/Wh: 10 Percent of Wound Purple/Maroon: 40 Wound Drainage Description: Serosanguineous Wound Drainage Amount: Scant Wound Drainage Odor: None/Absent Tissue Surrounding Wound: Indurated Wound General Appearance: Reddened, Draining Wound Assessment #3: Wound Number: 3 Wound Present on Admission: Yes New Wound: No Status Change of Wound: No Wound Location Body Site Modif: left Wound Location Body Site: heel Wound Type: pressure ulcer Best Test: Does not Best Pressure Ulcer Stage: Deep Tissue Injury Wound Thickness: Full Thickness Wound Length: 2.0 Wound Width: 2.5 Wound Depth: utd Percent of Wound Purple/Maroon: 100 Wound Drainage Amount: None Wound Drainage Odor: None/Absent Tissue Surrounding Wound: Erythemic Wound General Appearance: Reddened - purple Wound Assessment #4: Wound Number: 4 Wound Present on Admission: Yes New Wound: No Status Change of Wound: No Wound Location Body Site Modif: upper Wound Location Body Site: back Wound Type: pressure ulcer Best Test: Does not Best Pressure Ulcer Stage: II - scattered Wound Thickness: Partial Thickness Percent of Wound [place]/Red: 100 Wound Drainage Amount: None Wound Drainage Odor: None/Absent Tissue Surrounding Wound: Erythemic Wound General Appearance: Reddened, Draining Wound Assessment #5: Wound Number: 5 Wound Present on Admission: Yes New Wound: No Status Change of Wound: No Wound Location Body Site Modif: mid Wound Location Body Site: other - Sacrococcygeal and right sacral area Wound Type: pressure ulcer Best Test: Does not Best Pressure Ulcer Stage: Unstageable Wound Thickness: Full Thickness Wound Length: 6.5 Wound Width: 9.5 Wound Depth: utd Percent of Wound Bed Yellow/Wh: 100 Wound Drainage Description: Serosanguineous Wound Drainage Amount: Moderate Wound Drainage Odor: None/Absent Tissue Surrounding Wound: Macerated Wound General Appearance: Reddened, Draining Wound Assessment #6: Wound Number: 6 Wound Present on Admission: Yes New Wound: No Status Change of Wound: No Wound Location Body Site Modif: right Wound Location Body Site: scapula Wound Type: pressure ulcer Best Test: Does not Best Pressure Ulcer Stage: Unstageable Wound Thickness: Full Thickness Wound Length: 3.5 Wound Width: 2.5 Wound Depth: utd Percent of Wound Bed Yellow/Wh: 100 Wound Drainage Description: Serosanguineous Wound Drainage Amount: Moderate Wound Drainage Odor: None/Absent Tissue Surrounding Wound: Erythemic Wound General Appearance: Reddened - yellow, Draining Wound Assessment #7: Wound Number: 7 Wound Present on Admission: Yes New Wound: No Status Change of Wound: No Wound Location Body Site Modif: left, right, medial Wound Location Body Site: thigh Wound Type: blister - scattered open Best Test: Does not Best Wound Thickness: Partial Thickness Percent of Wound [place]/Red: 100 Wound Drainage Description: Serosanguineous Wound Drainage Amount: None Wound Drainage Odor: None/Absent Tissue Surrounding Wound: Erythemic Wound General Appearance: Reddened, Draining Wound Assessment #8: Wound Number: 8 Wound Present on Admission: Yes New Wound: No Status Change of Wound: No Wound Location Body Site Modif: left Wound Location Body Site: scapula Wound Type: pressure ulcer Best Test: Does not Best Pressure Ulcer Stage: Unstageable Wound Thickness: Full Thickness Wound Length: 3.0 Wound Width: 1.5 Wound Depth: utd Percent of Wound [place]/Red: 20 Percent of Wound Bed Yellow/Wh: 80 Wound Drainage Description: Serosanguineous Wound Drainage Amount: Moderate Wound Drainage Odor: None/Absent Tissue Surrounding Wound: Erythemic Wound General Appearance: Reddened - yellow, Draining Wound Assessment #9: Wound Number: 9 Wound Present on Admission: Yes New Wound: No Status Change of Wound: No Wound Location Body Site Modif: right Wound Location Body Site: ischial tuberosity Wound Type: pressure ulcer Best Test: Does not Best Pressure Ulcer Stage: II Wound Thickness: Partial Thickness Wound Length: 1.5 Wound Width: 2.5 Wound Depth: less than 0.1 Percent of Wound [place]/Red: 100 Wound Drainage Description: Serosanguineous Wound Drainage Amount: Scant Wound Drainage Odor: None/Absent Tissue Surrounding Wound: Erythemic Wound General Appearance: Reddened, Draining Wound Assessment #10: Wound Number: 10 Wound Present on Admission: Yes New Wound: No Status Change of Wound: No Wound Location Body Site Modif: right Wound Location Body Site: buttocks Wound Type: pressure ulcer Best Test: Does not Best Pressure Ulcer Stage: II Wound Thickness: Partial Thickness Wound Length: 1.5 Wound Width: 1.5 Wound Depth: less than 0.1 Percent of Wound [place]/Red: 100 Wound Drainage Description: Serosanguineous Wound Drainage Amount: Scant Wound Drainage Odor: None/Absent Tissue Surrounding Wound: Erythemic Wound General Appearance: Reddened, Draining Wound Assessment #11: Wound Number: 11 Wound Present on Admission: Yes New Wound: No Status Change of Wound: No Wound Location Body Site Modif: left Wound Location Body Site: buttocks Wound Type: pressure ulcer Best Test: Does not Best Pressure Ulcer Stage: II Wound Thickness: Partial Thickness Wound Length: 1.5 Wound Width: 1.5 Wound Depth: less than 0.1 Percent of Wound [place]/Red: 100 Wound Drainage Description: Serosanguineous Wound Drainage Amount: Scant Wound Drainage Odor: None/Absent Tissue Surrounding Wound: Erythemic Wound General Appearance: Reddened, Draining Wound Comment #1 Left dorsal foot open blister #2 Right heel unstageable pressure ulcer #3 Left heel DTI pressure ulcer #4 Upper back scattered stage II pressure ulcer #5 Mid Sacrococcygeal and right sacral area unstageable pressure ulcer #6 Right scapula unstageable pressure ulcer #7 Open blisters on medial left and right upper thigh #8 Left scapula unstageable pressure ulcer #9 Right ischial tuberosity stage II pressure ulcer #10 Right buttock stage II pressure ulcer #11 Left buttock stage II pressure ulcer Recommendation -Right scapula unstageable pressure ulcer and Left scapula unstageable pressure ulcer Cleanse with saline, pat dry, apply Therahoney gel to wound bed, cover with Biatain silicone daily and PRN soiled/dislodged - Left dorsal foot open blister - Right heel unstageable pressure ulcer - Left heel DTI pressure ulcer - Upper back scattered stage II pressure ulcer - Mid Sacrococcygeal and right sacral area unstageable pressure ulcer - Open blisters on medial left and right upper thigh - Right ischial tuberosity stage II pressure ulcer - Right buttock stage II pressure ulcer - Left buttock stage II pressure ulcer Cleanse with saline, pat dry, apply Triad cream, cover with Biatain silicone daily and PRN soiled/dislodged -Local wound care per protocol for DTI on left heel -Keep clean and dry -Turn and reposition -Low air loss P200 mattress -Optimize nutrition -Offload both heels -Heel protector on both heels -Assess and f/u accordingly for any changes ERIC HERNANDEZ RN May 18, 2017 13:46
--- NOTE | 2017-05-18 14:11 | Neurology Progress Note ---
Interim History Interim History ROS Limited/Unobtainable: Yes Objective Physical Exam Last Vital Signs Date Time Temp Pulse Resp B/P (MAP) Pulse Ox O2 Delivery O2 Flow Rate FiO2 05/18/17 13:12 95 14 35 05/18/17 12:00 97.0 126/61 100 Mechanical Ventilator 05/16/17 15:48 4.0 Laboratory Tests Test 05/18/17 06:35 05/18/17 08:30 White Blood Count 15.7 K/UL (4.8-10.8) #H Red Blood Count 3.62 M/UL (4.70-6.10) L Hemoglobin 9.9 G/DL (14.2-18.0) L Hematocrit 32.7 % (42.0-52.0) L Mean Corpuscular Volume 90 FL (80-99) Mean Corpuscular Hemoglobin 27.2 PG (27.0-31.0) Mean Corpuscular Hemoglobin Concent 30.2 G/DL (32.0-36.0) L Red Cell Distribution Width 16.6 % (11.6-14.8) H Platelet Count 574 K/UL (150-450) H Mean Platelet Volume 7.2 FL (6.5-10.1) Neutrophils (%) (Auto) % (45.0-75.0) Lymphocytes (%) (Auto) % (20.0-45.0) Monocytes (%) (Auto) % (1.0-10.0) Eosinophils (%) (Auto) % (0.0-3.0) Basophils (%) (Auto) % (0.0-2.0) Differential Total Cells Counted 100 Neutrophils % (Manual) 89 % (45-75) H Lymphocytes % (Manual) 7 % (20-45) L Monocytes % (Manual) 4 % (1-10) Eosinophils % (Manual) 0 % (0-3) Basophils % (Manual) 0 % (0-2) Band Neutrophils 0 % (0-8) Platelet Estimate Increased H Platelet Morphology Normal Hypochromasia 1+ Anisocytosis 1+ Sodium Level 164 MMOL/L (136-145) *H Potassium Level 5.5 MMOL/L (3.5-5.1) #H Chloride Level 127 MMOL/L (98-107) H Carbon Dioxide Level 24 MMOL/L (21-32) Anion Gap 13 mmol/L (5-15) Blood Urea Nitrogen 24 mg/dL (7-18) H Creatinine 1.2 MG/DL (0.55-1.30) Estimat Glomerular Filtration Rate > 60 mL/min (>60) Glucose Level 202 MG/DL (74-106) H Calcium Level 10.7 MG/DL (8.5-10.1) H Iron Level 34 ug/dL (50-175) L Total Iron Binding Capacity 207 ug/dL (250-450) L Percent Iron Saturation 16 % (15-50) Unsaturated Iron Binding 173 ug/dL (112-346) Ferritin 667 NG/ML (8-388) H Total Bilirubin 0.2 MG/DL (0.2-1.0) Aspartate Amino Transf (AST/SGOT) 117 U/L (15-37) H Alanine Aminotransferase (ALT/SGPT) 107 U/L (12-78) H Alkaline Phosphatase 775 U/L (46-116) H Total Protein 10.0 G/DL (6.4-8.2) H Albumin 2.2 G/DL (3.4-5.0) L Globulin 7.8 g/dL Albumin/Globulin Ratio 0.3 (1.0-2.7) L Prealbumin Pending Vitamin B12 Level > 2000 PG/ML (193-986) H Phenytoin (Dilantin) Level 5.9 ug/mL (10-20) L Hepatitis A IgM Antibody Pending Hepatitis B Surface Antigen Pending Hepatitis B Core IgM Antibody Pending Hepatitis C Antibody Pending Arterial Blood pH 7.366 (7.350-7.450) Arterial Blood Partial Pressure CO2 41.4 mmHg (35.0-45.0) Arterial Blood Partial Pressure O2 125.5 mmHg (75.0-100.0) H Arterial Blood HCO3 23.2 mmol/L (22.0-26.0) Arterial Blood Oxygen Saturation 98.0 % (92.0-98.0) Arterial Blood Base Excess -2.0 Marcus Test Positive Impression/Recommendations Problems: (1) postanoxic brain edema with truncal herniation (2) severe postanoxic encephalopathy (3) Transaminitis (4) Hypernatremia (5) Respirator dependent (6) Seizure disorder Status: deteriorating Recommendations #[id number] DAVID OGDEN May 18, 2017 14:11
[2017-05-18 16:00] VITALS: BP 134/79
[2017-05-18 20:00] VITALS: BP 153/94
[2017-05-18] MEDS: Phenytoin 100mg cap ORAL SCH (20:49)
[2017-05-19] VITALS: BP 136/82
--- NOTE | 2017-05-19 | Consultation ---
DATE OF CONSULTATION: 05/18/2017 NEUROLOGICAL CONSULTATION CONSULTING PHYSICIAN: Kosta Moctezuma M.D. REQUESTING PHYSICIAN: Celso Lund M.D. HISTORY OF PRESENT ILLNESS: This is a 27-year-old man, seen in neurological consultation to evaluate the persistent unresponsiveness. The patient is unresponsive, unable to provide with a history and was obtained from my conversation with his mother and father who was present as well as from medical records. Now, the patient is suffering from chronic seizure disorder, maintained on Keppra. Then, on 04/06/2017, he had a seizure episode, following which he developed full arrest. His girlfriend tried to make CPR, but apparently the patient was off breathing for at least 15 to 20 minutes. Paramedics arrived to the scene and took him to [facility]. Stat CT of the brain at that time revealed "swollen" brain, but EEG revealed the presence of brain activity. The patient remained comatose, unresponsive, although when "touched him, he would move his head right and left or try to squeeze my hand" as noted by his mother. The patient had minor movements, but otherwise no response. His pupils were described as being fixed and dilated. He now has no spontaneous respiration, maintained on intubation. Trach was placed. G-tube was placed. No further seizure activities were noted during hospitalization. The patient was then transferred to [facility] for further maintenance and treatment. He was not displaying any signs of improvement. On the day of admission, the patient's father noted that there was some swelling on the top of his head in the occipital region, which he could palpate on his own, his mother was unable to verify this. He was brought to the emergency room. Blood pressure 150/75, respirations 18, heart rate of 100, and temperature 98.8. His initial lab work revealed WBCs 11.6, hemoglobin 9.0, hematocrit 28.7, elevated MCV and MCH, normal coagulation panel except PTT of 40. Toxicology panel with phenytoin level of 5.9. Chemistry panel with sodium of 146, BUN of 21, elevated AST 175, ALT 103, and alkaline phosphatase 791. Elevated total protein of 8.7. Normal folate and B12. Repeat study this morning revealed sodium elevation of 164 and potassium 5.5 and calcium up at 10.7. On admission, the patient was placed on IV fluids and antibiotics. Started on Decadron 4 mg q.6 h., maintained on p.r.n. lorazepam, Zofran, Protonix, and continue with the Dilantin 300 mg at bedtime. At this time, neuro consult was requested for further assessment. PAST MEDICAL HISTORY: As mentioned, the patient has a history of chronic seizure disorder. ALLERGIES: No allergies. SOCIAL HISTORY: Lives with his girlfriend, has a child. 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 No history of alcohol, drinking, or illicit drug abuse. FAMILY HISTORY: No seizure activities. REVIEW OF SYMPTOMS: Unable to obtain due to the patient's status. PHYSICAL EXAMINATION: GENERAL: A well-developed, ill-appearing man, not in acute distress, now intubated with no spontaneous respiration, on ventilator support. VITAL SIGNS: Remained stable. Blood pressure 126/61 and temperature 97.0. HEENT: Head, normocephalic. There is no evidence of trauma. No otorrhea. No rhinorrhea noted. Eye examination, injected conjunctivae. Minor chemosis. NECK: Supple. No meningeal signs. EXTREMITIES: Upper and lower extremities without clubbing, cyanosis, or edema. Peripheral pulses are slightly palpable in both radial and dorsal pedis. MENTAL STATUS: No response to pin stimulation. No spontaneous movement. CRANIAL NERVE II: Pupils are 5 mm and fixed. Negative doll maneuver. Fundi poorly visualized. CRANIAL NERVE V: Absent corneal responses. CRANIAL NERVE VII: No facial movement. No facial asymmetry. CRANIAL NERVE VIII: Not tested. CRANIAL NERVE IX THROUGH XII: Absent gag response. MOTOR EXAMINATION: Flaccid in both upper and lower extremities. Minor response noted with left arm when stimulated. There is no spontaneous movement. Deep tendon reflexes absent, biceps, triceps, brachioradialis, knee and ankle jerks. Plantar response is mute. SENSORY EXAMINATION: No response to pin or pain stimulation. IMAGING DATA: Review of CT scan of the brain revealed presence of severe diffuse cerebral edema with complete obliteration of ventricles, likely uncal herniation bilaterally. Basal cisterns likely represent normal structures, but possibility of subarachnoid blood cannot be completely ruled out. Apparent left parietal scalp hematoma, may be subacute in nature. There is extensive sinus disease. IMPRESSION: 1. Status post full arrest with severe anoxic encephalopathy. 2. Post anoxic brain edema with uncal herniation. 3. History of chronic seizure disorder. 4. Transaminitis. 5. Respiratory failure, apnea. DISCUSSION: The patient appears to have symptoms compatible with brain . I discussed the patient's status with the family and described explaining the mechanism of swelling and its consequences. Family asked to be sure that "brain still works." I will obtain electroencephalogram for ECS. The patient meanwhile will continue with the current treatment including steroids. Prognosis is no neurological improvement is expected at this time. We will reassess in the morning. Thank you for allowing me to see this interesting patient in neurological consultation. Kosta Moctezuma M.D. DR: CHANTELLE JOB#: [id number] CC:
[2017-05-19 04:00] VITALS: BP 142/91
[2017-05-19] MEDS: Dexamethasone 4mg/ml vial IVP SCH ×4 (05:56→23:07)
[2017-05-19 06:01] LABS: BASOPHILS % (AUTO) 0.1 % (0.0-2.0); LYMPHOCYTES % (AUTO) 12.2 % (20.0-45.0); MEAN CORPUSCULAR HGB CONC 30.5 G/DL (32.0-36.0); MEAN CORPUSCULAR VOLUME 92 FL (80-99); MEAN PLATELET VOLUME 7.2 FL (6.5-10.1); MONOCYTES % (AUTO) 6.3 % (1.0-10.0); NEUTROPHILS % (AUTO) 81.3 % (45.0-75.0); PLATELET COUNT 571 K/UL (150-450); RED BLOOD COUNT 3.22 M/UL (4.70-6.10); RED CELL DISTRIBUTION WIDTH 17.7 % (11.6-14.8); WHITE BLOOD COUNT 14.5 K/UL (4.8-10.8)
[2017-05-19 06:14] LABS: ANION GAP 12 mmol/L (5-15); CALCIUM 9.4 MG/DL (8.5-10.1); CARBON DIOXIDE 26 MMOL/L (21-32); CHLORIDE 131 MMOL/L (98-107); CREATININE 1.2 MG/DL (0.55-1.30); GLOMERULAR FILTRATION RATE > 60 mL/min (>60); POTASSIUM 3.4 MMOL/L (3.5-5.1)
[2017-05-19 06:31] LABS: SODIUM 170 MMOL/L (136-145)
[2017-05-19 08:00] VITALS: BP 114/64
[2017-05-19] MEDS: Zosyn 3.375gm/50ml Premix 50 ML IVPB SCH ×3 (08:00→23:47)
--- NOTE | 2017-05-19 08:45 | Consultation ---
DATE OF CONSULTATION: 05/17/2017 INFECTIOUS DISEASES CONSULTATION CONSULTING PHYSICIAN: aMrcos Adame M.D REFERRING PHYSICIAN: Celso Lund M.D. REASON FOR CONSULTATION: Evaluation of the patient for wound and possible infection. HISTORY OF PRESENT ILLNESS: The patient is a 27-year-old male with multiple medical problems who was transferred here for further evaluation of the patient's swelling in the occipital area and wound. I was consulted for possible infection. At the time of admission, white blood cell count 11.6. The patient is not able to provide information. Most of the information gathered through chart and speaking to the parents at the bedside. PAST MEDICAL HISTORY: 1. Ventilator-dependent respiratory failure. 2. Status post trach and PEG placement. 3. Anoxic encephalopathy. 4. History of seizure disorder. MEDICATIONS: Vancomycin and Zosyn. ALLERGIES: No known drug allergies. SOCIAL HISTORY: The patient lives in senior living. FAMILY HISTORY: Noncontributory. REVIEW OF SYSTEMS: Unobtainable. PHYSICAL EXAMINATION: VITAL SIGNS: Temperature 95.4 degrees, pulse 86, and respiratory rate 18. HEENT: The patient has scab in the occipital area that was removed and skin underneath is healing. The patient has also mild left eye conjunctivitis. NECK: Trach in place. CHEST: Coarse breathing sounds. HEART: S1 and S2. ABDOMEN: Soft. EXTREMITIES: No cyanosis at this time. There are multiple decubitus with no sign of active infection. NEUROLOGIC: Nonverbal. LABORATORY AND DIAGNOSTIC DATA: White blood cell 11.7, hemoglobin 8, and platelets 418. BUN and creatinine are unremarkable. AST and ALT 174 and 103 and alkaline phosphatase 791. Ultrasound of the abdomen, hepatomegaly, negative for gallstone. Chest x-ray, right perihilar atelectasis, no focal infiltrate. Head CT, diffuse cerebral edema. ASSESSMENT: The patient is a 27-year-old male with multiple medical problems, who has 1. Mild leukocytosis. 2. Probable pneumonia. 3. Multiple wounds now are infected. 4. Conjunctivitis. PLAN: 1. We will continue the patient on IV Zosyn and discontinue vancomycin. 2. Monitor CBC. 3. Monitor BMP. 4. Monitor cultures (blood and sputum). 5. We will start topical for conjunctivitis. 6. Based on the patient's clinical course and laboratories, we will do further recommendation. Thank you Dr. Lund for allowing us to participate in the care of this patient. I will follow the patient with you during this hospitalization. Marcos Adame M.D. DR: LORI JOB#: [id number] CC:
[2017-05-19] MEDS: Sulfacetamide 10% Opth 15ml Btl BOTH EYES SCH ×4 (08:58→21:17)
[2017-05-19] MEDS: Pantoprazole Inj IV SCH (08:58)
--- NOTE | 2017-05-19 10:34 | Diagnostic Imaging Report ---
APPROVED REPORT CPT Code: 46567 Present Symptoms Shortness of breath Comments: Hx asthma, cardiac arrest. R/O DVT. BILATERAL: Imaging reveals a patent deep venous system bilaterally. There is no evidence of thrombus within the femoral, popliteal or tibial segments. The greater saphenous veins are also within normal limits. Doppler indicates normal spontaneous flow within these segments.
--- NOTE | 2017-05-19 11:02 | Infectious Diseases Prog Note ---
Assessment/Plan Assessment/Plan ASSESSMENT: The patient is a 27-year-old male with leukocytosis. ( on steroids ) Probable pneumonia. Multiple wounds now are infected. Conjunctivitis Transaminitis . Ventilator-dependent respiratory failure. Status post trach and PEG placement. Anoxic encephalopathy. History of seizure disorder. PLAN: continue the patient on IV Zosyn d# 3 Sulfacetamide Monitor CBC. Monitor BMP. Monitor cultures (blood and sputum). Hep Panel : P Subjective Allergies: Coded Allergies: No Known Allergies (Unverified , 01/27/14) Subjective afebrile Objective Vital Signs Last 24 Hour Vital Signs Date Time Temp Pulse Resp B/P (MAP) Pulse Ox O2 Delivery O2 Flow Rate FiO2 05/19/17 09:20 90 14 35 05/19/17 08:00 100 05/19/17 08:00 97.5 100 14 114/64 98 Mechanical Ventilator 35 05/19/17 08:00 35 05/19/17 06:51 96 14 35 05/19/17 05:19 97 14 35 05/19/17 04:00 95 05/19/17 04:00 35 05/19/17 04:00 97.3 100 14 142/91 99 Mechanical Ventilator 35 05/19/17 03:26 100 14 35 05/19/17 01:30 98 14 35 05/19/17 00:00 35 05/19/17 00:00 97.7 104 14 136/82 100 Mechanical Ventilator 35 05/19/17 00:00 100 05/18/17 23:30 90 13 35 05/18/17 21:30 91 14 35 05/18/17 20:00 35 05/18/17 20:00 97.5 100 14 153/94 98 Mechanical Ventilator 35 05/18/17 20:00 100 05/18/17 19:30 92 14 35 05/18/17 16:53 91 14 35 05/18/17 16:00 98.4 102 14 134/79 98 Mechanical Ventilator 35 05/18/17 16:00 35 05/18/17 16:00 106 05/18/17 15:12 93 14 35 05/18/17 13:12 95 14 35 05/18/17 12:00 35 05/18/17 12:00 97.0 99 15 126/61 100 Mechanical Ventilator 35 05/18/17 12:00 96 Height (Feet): 5 Height (Inches): 6.00 Weight (Pounds): 177 HEENT: anicteric Respiratory/Chest: normal breath sounds Cardiovascular: regular rhythm Abdomen: no organomegaly Microbiology Date/Time Source Procedure Growth Status 05/16/17 13:28 Blood Not Otherwise Specified Blood Culture - Preliminary NO GROWTH AFTER 48 HOURS Resulted 05/16/17 13:23 Blood Not Otherwise Specified Blood Culture - Preliminary NO GROWTH AFTER 48 HOURS Resulted 05/16/17 16:55 Nasal Nares MRSA Culture - Final NO METHICILLIN RESISTANT STAPH AUREUS... Complete 05/16/17 16:55 Rectum VRE Culture - Final Enterococcus Faecalis - Vre Complete Laboratory Tests Test 05/19/17 04:30 White Blood Count 14.5 K/UL (4.8-10.8) H Red Blood Count 3.22 M/UL (4.70-6.10) L Hemoglobin 9.0 G/DL (14.2-18.0) L Hematocrit 29.6 % (42.0-52.0) L Mean Corpuscular Volume 92 FL (80-99) Mean Corpuscular Hemoglobin 28.0 PG (27.0-31.0) Mean Corpuscular Hemoglobin Concent 30.5 G/DL (32.0-36.0) L Red Cell Distribution Width 17.7 % (11.6-14.8) H Platelet Count 571 K/UL (150-450) H Mean Platelet Volume 7.2 FL (6.5-10.1) Neutrophils (%) (Auto) 81.3 % (45.0-75.0) H Lymphocytes (%) (Auto) 12.2 % (20.0-45.0) L Monocytes (%) (Auto) 6.3 % (1.0-10.0) Eosinophils (%) (Auto) 0.0 % (0.0-3.0) Basophils (%) (Auto) 0.1 % (0.0-2.0) Sodium Level 170 MMOL/L (136-145) *H Potassium Level 3.4 MMOL/L (3.5-5.1) L Chloride Level 131 MMOL/L (98-107) H Carbon Dioxide Level 26 MMOL/L (21-32) Anion Gap 12 mmol/L (5-15) Blood Urea Nitrogen 33 mg/dL (7-18) H Creatinine 1.2 MG/DL (0.55-1.30) Estimat Glomerular Filtration Rate > 60 mL/min (>60) Glucose Level 266 MG/DL (74-106) H Calcium Level 9.4 MG/DL (8.5-10.1) Current Medications Medications (Trade) Dose Ordered Sig/Quang Route PRN Reason Start Time Stop Time Status Last Admin Dose Admin Acetaminophen (Tylenol) 650 mg Q4H PRN ORAL fever (temp > 100.5F) 05/16/17 15:30 06/15/17 15:29 Albuterol/ Ipratropium (Albuterol/ Ipratropium) 3 ml Q4H PRN HHN Shortness of Breath 05/16/17 15:30 05/21/17 15:29 Dexamethasone Sodium Phosphate (Decadron 4mg/ml vial) 6 mg Q6HR IVP 05/18/17 18:00 06/17/17 17:59 05/19/17 05:56 Dextrose 1,000 ml @ 75 mls/hr [id number] IV 05/18/17 08:30 06/17/17 08:29 05/19/17 10:49 Dextrose (Dextrose 50%) STAT PRN IV Hypoglycemia 05/16/17 15:30 06/15/17 15:29 Lorazepam (Ativan 2mg/ml 1ml) 2 mg Q2H PRN IV For Anxiety 05/16/17 15:30 05/23/17 15:29 Morphine Sulfate (Morphine Sulfate) 4 mg Q4H PRN IVP Severe Pain (Pain Scale 7-10) 05/16/17 15:30 05/23/17 15:29 Ondansetron HCl (Zofran) 4 mg Q6H PRN IVP Nausea & Vomiting 05/16/17 15:30 06/15/17 15:29 Pantoprazole (Protonix) 40 mg DAILY IV 05/17/17 09:00 06/16/17 08:59 05/19/17 08:58 Phenytoin (Dilantin) 400 mg BEDTIME ORAL 05/18/17 21:00 06/17/17 20:59 05/18/17 20:49 Piperacillin/ Tazobactam/ Dextrose 50 ml @ 12.5 mls/hr Q8HR@0000,0800,1600 IVPB 05/16/17 16:00 05/23/17 15:59 05/19/17 08:00 Polyethylene Glycol (Miralax) 17 gm DAILYPRN PRN ORAL Constipation 05/16/17 15:30 06/15/17 15:29 Sulfacetamide Sodium (Sodium Sulamyd) 1 drop QID BOTH EYES 05/17/17 18:00 05/24/17 17:59 05/19/17 08:58 KENNEDY MATOS M.D. May 19, 2017 11:02
--- NOTE | 2017-05-19 11:24 | Consultation ---
Consult Note Consult Note asked to eval for polyuria, HyperNatremia , worsenning renal failure- examined- Data reviewed Assessment/Plan Suspect DI others: probable sepsis possible PNA diffused cerebral edema seizure disorder VDRF/trach anoxic encephalopathy anemia dehydration hyper Na ( likely due to dehydration and free water deficit0 transaminitis possible protein calorie malnutrition dysphagia, G tube PLAN OF CARE IVF with dextrose, vent support trach care pulmonary toilet Urine studies Nasal DDAVP VALENTE NIELSEN May 19, 2017 11:24
[2017-05-19] MEDS ORDERED: Desmopressin Nasal 5ml NASAL SCH (11:30)
[2017-05-19 11:53] LABS: ALANINE AMINOTRANSFERASE 100 U/L (12-78); ASPARTATE AMINO TRANSFERASE 84 U/L (15-37); BILIRUBIN,DIRECT < 0.1 MG/DL (0.0-0.3); MAGNESIUM 3.2 MG/DL (1.8-2.4); PHOSPHORUS 4.3 MG/DL (2.5-4.9); TOTAL PROTEIN 9.5 G/DL (6.4-8.2); URIC ACID 7.9 MG/DL (2.6-7.2)
--- NOTE | 2017-05-19 11:57 | Neurology Progress Note ---
Interim History Interim History ROS Limited/Unobtainable: Yes Complaints: none Events: no change Objective Physical Exam Last Vital Signs Date Time Temp Pulse Resp B/P (MAP) Pulse Ox O2 Delivery O2 Flow Rate FiO2 05/19/17 11:02 89 14 35 05/19/17 08:00 97.5 114/64 98 Mechanical Ventilator 05/16/17 15:48 4.0 Laboratory Tests Test 05/19/17 04:30 05/19/17 11:25 White Blood Count 14.5 K/UL (4.8-10.8) H Red Blood Count 3.22 M/UL (4.70-6.10) L Hemoglobin 9.0 G/DL (14.2-18.0) L Hematocrit 29.6 % (42.0-52.0) L Mean Corpuscular Volume 92 FL (80-99) Mean Corpuscular Hemoglobin 28.0 PG (27.0-31.0) Mean Corpuscular Hemoglobin Concent 30.5 G/DL (32.0-36.0) L Red Cell Distribution Width 17.7 % (11.6-14.8) H Platelet Count 571 K/UL (150-450) H Mean Platelet Volume 7.2 FL (6.5-10.1) Neutrophils (%) (Auto) 81.3 % (45.0-75.0) H Lymphocytes (%) (Auto) 12.2 % (20.0-45.0) L Monocytes (%) (Auto) 6.3 % (1.0-10.0) Eosinophils (%) (Auto) 0.0 % (0.0-3.0) Basophils (%) (Auto) 0.1 % (0.0-2.0) Sodium Level 170 MMOL/L (136-145) *H Potassium Level 3.4 MMOL/L (3.5-5.1) L Chloride Level 131 MMOL/L (98-107) H Carbon Dioxide Level 26 MMOL/L (21-32) Anion Gap 12 mmol/L (5-15) Blood Urea Nitrogen 33 mg/dL (7-18) H Creatinine 1.2 MG/DL (0.55-1.30) Estimat Glomerular Filtration Rate > 60 mL/min (>60) Glucose Level 266 MG/DL (74-106) H Uric Acid Pending Calcium Level 9.4 MG/DL (8.5-10.1) Phosphorus Level Pending Magnesium Level Pending Total Bilirubin Pending Direct Bilirubin Pending Aspartate Amino Transf (AST/SGOT) Pending Alanine Aminotransferase (ALT/SGPT) Pending Alkaline Phosphatase Pending Total Protein Pending Albumin Pending Urine Osmolality Pending Urine Random Sodium 15 MEQ/L (20-110) L General: well developed, other - intubated ,, no spont respiration, apnea Head: atraumatic Neck: no rigidity Neurologic Exam Mental Status: other - no responce to pain Speech: other Language: other Cranial Nerve II: other - not visualised Cranial Nerves III, IV, : other - P6mm fixed, Doll,s neg Ice caloric Neg Cranial Nerve V: other - no corneal responces Cranial Nerve VII: other Cranial Nerve VIII: other Cranial Nerve IX: other - no gag Cranial Nerve XI: other Cranial Nerve XII: other Motor System: other - flaccid, no spont movement Sensory: other - none Coordination: other - none Deep Tendon Reflexes: 0 bicep (L), 0 bicep (R), 0 tricep (L), 0 tricep (R), 0 brachioradialis (L), 0 brachioradialis (R), 0 knee (L), 0 knee (R), 0 ankle (L) , 0 ankle (R) Reflexes: mute plantar (L), mute plantar (R) Stance: other Gait: other Impression/Recommendations Problems: (1) now in clinical as of 05/19/17 (2) postanoxic brain edema with truncal herniation (3) severe postanoxic encephalopathy (4) Respirator dependent (5) Seizure disorder Status: deteriorating Recommendations #[id number] DAVID OGDEN May 19, 2017 11:57
[2017-05-19 12:00] VITALS: BP 123/58
[2017-05-19 13:00] LABS: PREALBUMIN 18 mg/dL (14-35)
--- NOTE | 2017-05-19 13:12 | Pulmonolgy Critical Care Note ---
Critical Care - Asmt/Plan Problems: (1) Hypernatremia (2) Seizure disorder (3) severe postanoxic encephalopathy (4) postanoxic brain edema with truncal herniation (5) now in clinical as of 05/19/17 Respiratory: monitor respiratory rate, adjust FIO2, CXR, ABG Cardiac: continue to monitor HR/BP Renal: F/U I&O Infectious Disease: check cultures, continue antibiotics Gastrointestinal: continue feedings/current rate Hematologic: monitor H/H, transfuse if hgb<8.5 Neurologic: PRN Ativan, PRN Morphine, keep patient comfortable Notes Reviewed: renal Discussed with: nurses, consultants, family service caseworkerintegrity manager - Objective Last 24 Hour Vital Signs Date Time Temp Pulse Resp B/P (MAP) Pulse Ox O2 Delivery O2 Flow Rate FiO2 05/19/17 11:02 89 14 35 05/19/17 09:20 90 14 35 05/19/17 08:00 100 05/19/17 08:00 97.5 100 14 114/64 98 Mechanical Ventilator 35 05/19/17 08:00 35 05/19/17 06:51 96 14 35 05/19/17 05:19 97 14 35 05/19/17 04:00 95 05/19/17 04:00 35 05/19/17 04:00 97.3 100 14 142/91 99 Mechanical Ventilator 35 05/19/17 03:26 100 14 35 05/19/17 01:30 98 14 35 05/19/17 00:00 35 05/19/17 00:00 97.7 104 14 136/82 100 Mechanical Ventilator 35 05/19/17 00:00 100 05/18/17 23:30 90 13 35 05/18/17 21:30 91 14 35 05/18/17 20:00 35 05/18/17 20:00 97.5 100 14 153/94 98 Mechanical Ventilator 35 05/18/17 20:00 100 05/18/17 19:30 92 14 35 05/18/17 16:53 91 14 35 05/18/17 16:00 98.4 102 14 134/79 98 Mechanical Ventilator 35 05/18/17 16:00 35 05/18/17 16:00 106 05/18/17 15:12 93 14 35 05/18/17 13:12 95 14 35 Status: other - pt has dolls eyes, no corneal reflexes, doesn't respond to painful stimuli Micro: Microbiology Date/Time Source Procedure Growth Status 05/16/17 13:28 Blood Not Otherwise Specified Blood Culture - Preliminary NO GROWTH AFTER 48 HOURS Resulted 05/16/17 13:23 Blood Not Otherwise Specified Blood Culture - Preliminary NO GROWTH AFTER 48 HOURS Resulted 05/16/17 16:55 Nasal Nares MRSA Culture - Final NO METHICILLIN RESISTANT STAPH AUREUS... Complete 05/16/17 16:55 Rectum VRE Culture - Final Enterococcus Faecalis - Vre Complete Critical Care - Subjective ROS Limited/Unobtainable: Yes EKG Rhythm: Sinus Rhythm FI02: 35 Vent Support Breath Rate: 14 Vent Support Mode: AC Vent Tidal Volume: 600 Sputum Amount: Small PEEP: 5.0 PIP: 20 Tube Feeding Amount: 30 I&O: Intake and Output 05/19/17 05/20/17 19:00 07:00 Intake Total 250.0 ml Balance 250.0 ml IV Total 250.0 ml Labs: Laboratory Tests Test 05/19/17 04:30 05/19/17 11:25 White Blood Count 14.5 K/UL (4.8-10.8) H Red Blood Count 3.22 M/UL (4.70-6.10) L Hemoglobin 9.0 G/DL (14.2-18.0) L Hematocrit 29.6 % (42.0-52.0) L Mean Corpuscular Volume 92 FL (80-99) Mean Corpuscular Hemoglobin 28.0 PG (27.0-31.0) Mean Corpuscular Hemoglobin Concent 30.5 G/DL (32.0-36.0) L Red Cell Distribution Width 17.7 % (11.6-14.8) H Platelet Count 571 K/UL (150-450) H Mean Platelet Volume 7.2 FL (6.5-10.1) Neutrophils (%) (Auto) 81.3 % (45.0-75.0) H Lymphocytes (%) (Auto) 12.2 % (20.0-45.0) L Monocytes (%) (Auto) 6.3 % (1.0-10.0) Eosinophils (%) (Auto) 0.0 % (0.0-3.0) Basophils (%) (Auto) 0.1 % (0.0-2.0) Sodium Level 170 MMOL/L (136-145) *H Potassium Level 3.4 MMOL/L (3.5-5.1) L Chloride Level 131 MMOL/L (98-107) H Carbon Dioxide Level 26 MMOL/L (21-32) Anion Gap 12 mmol/L (5-15) Blood Urea Nitrogen 33 mg/dL (7-18) H Creatinine 1.2 MG/DL (0.55-1.30) Estimat Glomerular Filtration Rate > 60 mL/min (>60) Glucose Level 266 MG/DL (74-106) H Uric Acid 7.9 MG/DL (2.6-7.2) H Calcium Level 9.4 MG/DL (8.5-10.1) Phosphorus Level 4.3 MG/DL (2.5-4.9) Magnesium Level 3.2 MG/DL (1.8-2.4) H Total Bilirubin 0.2 MG/DL (0.2-1.0) Direct Bilirubin < 0.1 MG/DL (0.0-0.3) Aspartate Amino Transf (AST/SGOT) 84 U/L (15-37) H Alanine Aminotransferase (ALT/SGPT) 100 U/L (12-78) H Alkaline Phosphatase 680 U/L (46-116) H Total Protein 9.5 G/DL (6.4-8.2) H Albumin 2.3 G/DL (3.4-5.0) L Urine Osmolality 285 mOsm/kg (429-449) L Urine Random Sodium 15 MEQ/L (20-110) L ZAYNAB GLASS May 19, 2017 13:12
--- NOTE | 2017-05-19 14:59 | Diagnostic Imaging Report ---
Indication: Dyspnea Comparison: 05/18/17 A single view chest radiograph was obtained. Findings: There is a patch of pneumonia versus atelectasis at both lung bases. Tracheostomy noted. Heart size is normal. Impression: Patchy inferomedial atelectasis versus pneumonia unchanged
[2017-05-19 16:00] VITALS: BP 120/66
[2017-05-19] MEDS ORDERED: Desmopressin (DDAVP) Inj SUBQ SCH (16:00)
[2017-05-19 20:00] VITALS: BP 142/70
[2017-05-19] MEDS: Phenytoin 100mg cap ORAL SCH (21:18)
[2017-05-20] VITALS: BP 137/80
[2017-05-20 03:52] VITALS: BP 129/77
[2017-05-20] MEDS: Dexamethasone 4mg/ml vial IVP SCH ×3 (05:24→17:19)
[2017-05-20 05:27] LABS: BASOPHILS % (AUTO) 0.1 % (0.0-2.0); LYMPHOCYTES % (AUTO) 20.2 % (20.0-45.0); MEAN CORPUSCULAR HEMOGLOBIN 28.1 PG (27.0-31.0); MEAN CORPUSCULAR HGB CONC 30.4 G/DL (32.0-36.0); MEAN CORPUSCULAR VOLUME 93 FL (80-99); MEAN PLATELET VOLUME 6.9 FL (6.5-10.1); MONOCYTES % (AUTO) 8.2 % (1.0-10.0); NEUTROPHILS % (AUTO) 71.4 % (45.0-75.0); PLATELET COUNT 436 K/UL (150-450); RED BLOOD COUNT 2.83 M/UL (4.70-6.10); RED CELL DISTRIBUTION WIDTH 16.9 % (11.6-14.8); WHITE BLOOD COUNT 14.2 K/UL (4.8-10.8)
[2017-05-20 05:40] LABS: HEMOGLOBIN A1C 6.3 % (4.3-6.0)
[2017-05-20 06:24] LABS: FOLIC ACID 15.3 NG/ML (3.1-17.5); IRON 114 ug/dL (50-175); TOTAL IRON BINDING CAPACITY 181 ug/dL (250-450)
[2017-05-20 06:30] LABS: ALANINE AMINOTRANSFERASE 201 U/L (12-78); ALBUMIN/GLOBULIN RATIO 0.3 (1.0-2.7); ANION GAP 15 mmol/L (5-15); ASPARTATE AMINO TRANSFERASE 249 U/L (15-37); CALCIUM 8.1 MG/DL (8.5-10.1); CARBON DIOXIDE 27 MMOL/L (21-32); CHLORIDE 131 MMOL/L (98-107); CHOLESTEROL 256 MG/DL (< 200); CHOLESTEROL/HDL RATIO 9.8 (3.3-4.4); CREATININE 1.1 MG/DL (0.55-1.30); CRP QUANT 7.8 mg/dL (0.00-0.90); FERRITIN 608 NG/ML (8-388); GLOMERULAR FILTRATION RATE > 60 mL/min (>60); MAGNESIUM 3.2 MG/DL (1.8-2.4); PHOSPHORUS 2.8 MG/DL (2.5-4.9); THYROID STIMULATING HORMONE < 0.007 uiU/mL (0.360-3.740); TOTAL PROTEIN 8.6 G/DL (6.4-8.2); URIC ACID 7.7 MG/DL (2.6-7.2)
[2017-05-20 06:32] LABS: SODIUM 172 MMOL/L (136-145)
[2017-05-20 07:56] VITALS: BP 138/83
[2017-05-20] MEDS: Zosyn 3.375gm/50ml Premix 50 ML IVPB SCH ×2 (08:07→15:22)
[2017-05-20] MEDS: Pantoprazole Inj IV SCH (08:08)
[2017-05-20] MEDS: Sulfacetamide 10% Opth 15ml Btl BOTH EYES SCH ×4 (08:08→21:00)
[2017-05-20] MEDS: Desmopressin (DDAVP) Inj SUBQ SCH ×2 (08:47→21:04)
--- NOTE | 2017-05-20 08:47 | Pulmonology Progress Note ---
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 Le for second opinion called. Subjective ROS Limited/Unobtainable: No Interval Events: no change Allergies: Coded Allergies: No Known Allergies (Unverified , 01/27/14) Objective Last 24 Hour Vital Signs Date Time Temp Pulse Resp B/P (MAP) Pulse Ox O2 Delivery O2 Flow Rate FiO2 05/20/17 08:00 35 05/20/17 07:56 97.7 86 14 138/83 100 Mechanical Ventilator 35 05/20/17 07:28 84 14 35 05/20/17 05:18 87 14 35 05/20/17 04:00 84 05/20/17 04:00 35 05/20/17 03:52 97.0 84 14 129/77 100 Mechanical Ventilator 35 05/20/17 03:09 89 14 35 05/20/17 00:53 82 14 35 05/20/17 00:00 101 05/20/17 00:00 35 05/20/17 00:00 99.5 101 14 137/80 99 Mechanical Ventilator 35 05/19/17 23:24 87 14 35 05/19/17 22:17 100.1 05/19/17 21:06 92 14 35 05/19/17 20:00 35 05/19/17 20:00 100.1 117 14 142/70 97 Mechanical Ventilator 35 05/19/17 20:00 113 05/19/17 19:57 98 14 35 05/19/17 17:04 92 14 35 05/19/17 16:00 35 05/19/17 16:00 112 05/19/17 16:00 99.0 109 14 120/66 98 Mechanical Ventilator 35 05/19/17 15:05 90 14 35 05/19/17 12:58 91 14 35 05/19/17 12:00 98.4 101 14 123/58 98 Mechanical Ventilator 35 05/19/17 12:00 35 05/19/17 12:00 102 05/19/17 11:02 89 14 35 05/19/17 09:20 90 14 35 General Appearance: WD/WN HEENT: normocephalic, atraumatic Respiratory/Chest: chest wall non-tender, lungs clear, normal breath sounds Cardiovascular: normal peripheral pulses, normal rate, regular rhythm Abdomen: normal bowel sounds, soft, non tender Genitourinary: normal external genitalia Extremities: no clubbing Skin: no lesions Neurologic/Psychiatric: no motor/sensory deficits, normal mood/affect Lymphatic: no groin adenopathy Musculoskeletal: normal muscle bulk Laboratory Tests 05/19/17 11:25: Urine Osmolality 285L, Urine Random Sodium 15L 05/20/17 03:20: White Blood Count 14.2H, Red Blood Count 2.83L, Hemoglobin 8.0L, Hematocrit 26.2L, Mean Corpuscular Volume 93, Mean Corpuscular Hemoglobin 28.1, Mean Corpuscular Hemoglobin Concent 30.4L, Red Cell Distribution Width 16.9H, Platelet Count 436, Mean Platelet Volume 6.9, Neutrophils (%) (Auto) 71.4, Lymphocytes (%) (Auto) 20.2, Monocytes (%) (Auto) 8.2, Eosinophils (%) (Auto) 0.0, Basophils (%) (Auto) 0.1, Sodium Level 172*H, Potassium Level 3.0L, Chloride Level 131H, Carbon Dioxide Level 27, Anion Gap 15, Blood Urea Nitrogen 42H, Creatinine 1.1, Estimat Glomerular Filtration Rate > 60, Glucose Level 226H , Hemoglobin A1c 6.3H, Uric Acid 7.7H, Calcium Level 8.1L, Phosphorus Level 2.8 , Magnesium Level 3.2H, Iron Level 114, Total Iron Binding Capacity 181L, Percent Iron Saturation 63H, Unsaturated Iron Binding 67L, Ferritin 608H, Total Bilirubin 0.2, Gamma Glutamyl Transpeptidase 322H, Aspartate Amino Transf (AST/ SGOT) 249H, Alanine Aminotransferase (ALT/SGPT) 201H, Alkaline Phosphatase 654H , Total Creatine Kinase 32, C-Reactive Protein, Quantitative 7.8H, Pro-B-Type Natriuretic Peptide 580H, Total Protein 8.6H, Albumin 2.2L, Globulin 6.4, Albumin/Globulin Ratio 0.3L, Triglycerides Level 174, Cholesterol Level 256H, LDL Cholesterol 199H, HDL Cholesterol 26L, Cholesterol/HDL Ratio 9.8H, Vitamin B12 Level 1533H, Folate 15.3, Thyroid Stimulating Hormone (TSH) < 0.007L Current Medications Medications (Trade) Dose Ordered Sig/Quang Route PRN Reason Start Time Stop Time Status Last Admin Dose Admin Acetaminophen (Tylenol) 650 mg Q4H PRN ORAL fever (temp > 100.5F) 05/16/17 15:30 06/15/17 15:29 05/19/17 21:18 Albuterol/ Ipratropium (Albuterol/ Ipratropium) 3 ml Q4H PRN HHN Shortness of Breath 05/16/17 15:30 05/21/17 15:29 Desmopressin Acetate (Ddavp) 8 mcg Q12HR SUBQ 05/20/17 09:00 06/19/17 08:59 Dexamethasone Sodium Phosphate (Decadron 4mg/ml vial) 6 mg Q6HR IVP 05/18/17 18:00 06/17/17 17:59 05/20/17 05:24 Dextrose 1,000 ml @ 300 mls/hr Q3H20M IV 05/20/17 08:00 06/19/17 07:59 05/20/17 07:52 Dextrose (Dextrose 50%) STAT PRN IV Hypoglycemia 05/16/17 15:30 06/15/17 15:29 Lorazepam (Ativan 2mg/ml 1ml) 2 mg Q2H PRN IV For Anxiety 05/16/17 15:30 05/23/17 15:29 Morphine Sulfate (Morphine Sulfate) 4 mg Q4H PRN IVP Severe Pain (Pain Scale 7-10) 05/16/17 15:30 05/23/17 15:29 Ondansetron HCl (Zofran) 4 mg Q6H PRN IVP Nausea & Vomiting 05/16/17 15:30 06/15/17 15:29 Pantoprazole (Protonix) 40 mg DAILY IV 05/17/17 09:00 06/16/17 08:59 05/20/17 08:08 Phenytoin (Dilantin) 400 mg BEDTIME ORAL 05/18/17 21:00 06/17/17 20:59 05/19/17 21:18 Piperacillin/ Tazobactam/ Dextrose 50 ml @ 12.5 mls/hr Q8HR@0000,0800,1600 IVPB 05/16/17 16:00 05/23/17 15:59 05/20/17 08:07 Polyethylene Glycol (Miralax) 17 gm DAILYPRN PRN ORAL Constipation 05/16/17 15:30 06/15/17 15:29 Sulfacetamide Sodium (Sodium Sulamyd) 1 drop QID BOTH EYES 05/17/17 18:00 05/24/17 17:59 05/20/17 08:08 ZAYNAB GLASS May 20, 2017 08:47
[2017-05-20] MEDS ORDERED: NS 275ml ONE (09:28)
[2017-05-20] MEDS ORDERED: Tubing IV Secondary IV ONE (09:28)
[2017-05-20 12:00] VITALS: BP 138/88
--- NOTE | 2017-05-20 14:26 | Nephrology Progress Note ---
Assessment/Plan Problem List: (1) Diabetes insipidus, neurohypophyseal (2) severe postanoxic encephalopathy (3) postanoxic brain edema with truncal herniation Assessment Suspect DI others: probable sepsis possible PNA diffused cerebral edema seizure disorder VDRF/trach anoxic encephalopathy anemia dehydration hyper Na ( likely due to dehydration and free water deficit0 transaminitis possible protein calorie malnutrition dysphagia, G tube Plan PLAN OF CARE Neuro advise if brain ?? IVF with dextrose, vent support trach care pulmonary toilet Urine studies DDAVP monitor lytes Subjective ROS Limited/Unobtainable: Yes Objective Objective Last 24 Hour Vital Signs Date Time Temp Pulse Resp B/P (MAP) Pulse Ox O2 Delivery O2 Flow Rate FiO2 05/20/17 13:08 83 14 35 05/20/17 12:01 84 05/20/17 12:00 35 05/20/17 12:00 97.5 86 14 138/88 100 Mechanical Ventilator 35 05/20/17 11:08 86 14 35 05/20/17 09:20 83 14 35 05/20/17 08:00 83 05/20/17 08:00 35 05/20/17 07:56 97.7 86 14 138/83 100 Mechanical Ventilator 35 05/20/17 07:28 84 14 35 05/20/17 05:18 87 14 35 05/20/17 04:00 84 05/20/17 04:00 35 05/20/17 03:52 97.0 84 14 129/77 100 Mechanical Ventilator 35 05/20/17 03:09 89 14 35 05/20/17 00:53 82 14 35 05/20/17 00:00 101 05/20/17 00:00 35 05/20/17 00:00 99.5 101 14 137/80 99 Mechanical Ventilator 35 05/19/17 23:24 87 14 35 05/19/17 22:17 100.1 05/19/17 21:06 92 14 35 05/19/17 20:00 35 05/19/17 20:00 100.1 117 14 142/70 97 Mechanical Ventilator 35 05/19/17 20:00 113 05/19/17 19:57 98 14 35 05/19/17 17:04 92 14 35 05/19/17 16:00 35 05/19/17 16:00 112 05/19/17 16:00 99.0 109 14 120/66 98 Mechanical Ventilator 35 05/19/17 15:05 90 14 35 Intake and Output 05/20/17 05/21/17 19:00 07:00 Intake Total 1087.5 ml Balance 1087.5 ml IV Total 1087.5 ml Laboratory Tests 05/20/17 03:20: White Blood Count 14.2H, Red Blood Count 2.83L, Hemoglobin 8.0L, Hematocrit 26.2L, Mean Corpuscular Volume 93, Mean Corpuscular Hemoglobin 28.1, Mean Corpuscular Hemoglobin Concent 30.4L, Red Cell Distribution Width 16.9H, Platelet Count 436, Mean Platelet Volume 6.9, Neutrophils (%) (Auto) 71.4, Lymphocytes (%) (Auto) 20.2, Monocytes (%) (Auto) 8.2, Eosinophils (%) (Auto) 0.0, Basophils (%) (Auto) 0.1, Sodium Level 172*H, Potassium Level 3.0L, Chloride Level 131H, Carbon Dioxide Level 27, Anion Gap 15, Blood Urea Nitrogen 42H, Creatinine 1.1, Estimat Glomerular Filtration Rate > 60, Glucose Level 226H , Hemoglobin A1c 6.3H, Uric Acid 7.7H, Calcium Level 8.1L, Phosphorus Level 2.8 , Magnesium Level 3.2H, Iron Level 114, Total Iron Binding Capacity 181L, Percent Iron Saturation 63H, Unsaturated Iron Binding 67L, Ferritin 608H, Total Bilirubin 0.2, Gamma Glutamyl Transpeptidase 322H, Aspartate Amino Transf (AST/ SGOT) 249H, Alanine Aminotransferase (ALT/SGPT) 201H, Alkaline Phosphatase 654H , Total Creatine Kinase 32, C-Reactive Protein, Quantitative 7.8H, Pro-B-Type Natriuretic Peptide 580H, Total Protein 8.6H, Albumin 2.2L, Globulin 6.4, Albumin/Globulin Ratio 0.3L, Triglycerides Level 174, Cholesterol Level 256H, LDL Cholesterol 199H, HDL Cholesterol 26L, Cholesterol/HDL Ratio 9.8H, Vitamin B12 Level 1533H, Folate 15.3, Thyroid Stimulating Hormone (TSH) < 0.007L Height (Feet): 5 Height (Inches): 6.00 Weight (Pounds): 177 General Appearance: other - comatose Neck: other - trach vent Cardiovascular: normal rate Respiratory/Chest: decreased breath sounds Abdomen: soft VALENTE NIELSEN May 20, 2017 14:26
[2017-05-20 16:00] VITALS: BP 137/84
--- NOTE | 2017-05-20 17:08 | Infectious Diseases Prog Note ---
Assessment/Plan Assessment/Plan ASSESSMENT: The patient is a 27-year-old male with Fever, SP leukocytosis. ( on steroids ) Probable pneumonia. xray 05/19 : Patchy inferomedial atelectasis versus pneumonia unchanged Multiple wounds now are infected. Conjunctivitis Transaminitis Hepatitis panel : neg Ventilator-dependent respiratory failure. Status post trach and PEG placement. Anoxic encephalopathy. History of seizure disorder. PLAN: continue the patient on IV Zosyn d# 4 Sulfacetamide d# 4 Monitor CBC. Monitor BMP. Monitor cultures (blood ) Subjective Allergies: Coded Allergies: No Known Allergies (Unverified , 01/27/14) Subjective afebrile Objective Vital Signs Last 24 Hour Vital Signs Date Time Temp Pulse Resp B/P (MAP) Pulse Ox O2 Delivery O2 Flow Rate FiO2 05/20/17 16:48 77 14 35 05/20/17 16:00 35 05/20/17 16:00 97.2 79 14 137/84 100 Mechanical Ventilator 35 05/20/17 14:30 85 14 35 05/20/17 13:08 83 14 35 05/20/17 12:01 84 05/20/17 12:00 35 05/20/17 12:00 97.5 86 14 138/88 100 Mechanical Ventilator 35 05/20/17 11:08 86 14 35 05/20/17 09:20 83 14 35 05/20/17 08:00 83 05/20/17 08:00 35 05/20/17 07:56 97.7 86 14 138/83 100 Mechanical Ventilator 35 05/20/17 07:28 84 14 35 05/20/17 05:18 87 14 35 05/20/17 04:00 84 05/20/17 04:00 35 05/20/17 03:52 97.0 84 14 129/77 100 Mechanical Ventilator 35 05/20/17 03:09 89 14 35 05/20/17 00:53 82 14 35 05/20/17 00:00 101 05/20/17 00:00 35 05/20/17 00:00 99.5 101 14 137/80 99 Mechanical Ventilator 35 05/19/17 23:24 87 14 35 05/19/17 22:17 100.1 05/19/17 21:06 92 14 35 05/19/17 20:00 35 05/19/17 20:00 100.1 117 14 142/70 97 Mechanical Ventilator 35 05/19/17 20:00 113 05/19/17 19:57 98 14 35 Height (Feet): 5 Height (Inches): 6.00 Weight (Pounds): 177 HEENT: anicteric Respiratory/Chest: no respiratory distress Cardiovascular: normal rate Abdomen: no organomegaly Laboratory Tests Test 05/20/17 03:20 White Blood Count 14.2 K/UL (4.8-10.8) H Red Blood Count 2.83 M/UL (4.70-6.10) L Hemoglobin 8.0 G/DL (14.2-18.0) L Hematocrit 26.2 % (42.0-52.0) L Mean Corpuscular Volume 93 FL (80-99) Mean Corpuscular Hemoglobin 28.1 PG (27.0-31.0) Mean Corpuscular Hemoglobin Concent 30.4 G/DL (32.0-36.0) L Red Cell Distribution Width 16.9 % (11.6-14.8) H Platelet Count 436 K/UL (150-450) Mean Platelet Volume 6.9 FL (6.5-10.1) Neutrophils (%) (Auto) 71.4 % (45.0-75.0) Lymphocytes (%) (Auto) 20.2 % (20.0-45.0) Monocytes (%) (Auto) 8.2 % (1.0-10.0) Eosinophils (%) (Auto) 0.0 % (0.0-3.0) Basophils (%) (Auto) 0.1 % (0.0-2.0) Sodium Level 172 MMOL/L (136-145) *H Potassium Level 3.0 MMOL/L (3.5-5.1) L Chloride Level 131 MMOL/L (98-107) H Carbon Dioxide Level 27 MMOL/L (21-32) Anion Gap 15 mmol/L (5-15) Blood Urea Nitrogen 42 mg/dL (7-18) H Creatinine 1.1 MG/DL (0.55-1.30) Estimat Glomerular Filtration Rate > 60 mL/min (>60) Glucose Level 226 MG/DL (74-106) H Hemoglobin A1c 6.3 % (4.3-6.0) H Uric Acid 7.7 MG/DL (2.6-7.2) H Calcium Level 8.1 MG/DL (8.5-10.1) L Phosphorus Level 2.8 MG/DL (2.5-4.9) Magnesium Level 3.2 MG/DL (1.8-2.4) H Iron Level 114 ug/dL (50-175) Total Iron Binding Capacity 181 ug/dL (250-450) L Percent Iron Saturation 63 % (15-50) H Unsaturated Iron Binding 67 ug/dL (112-346) L Ferritin 608 NG/ML (8-388) H Total Bilirubin 0.2 MG/DL (0.2-1.0) Gamma Glutamyl Transpeptidase 322 U/L (5-85) H Aspartate Amino Transf (AST/SGOT) 249 U/L (15-37) H Alanine Aminotransferase (ALT/SGPT) 201 U/L (12-78) H Alkaline Phosphatase 654 U/L (46-116) H Total Creatine Kinase 32 U/L (26-308) C-Reactive Protein, Quantitative 7.8 mg/dL (0.00-0.90) H Pro-B-Type Natriuretic Peptide 580 pg/mL (0-125) H Total Protein 8.6 G/DL (6.4-8.2) H Albumin 2.2 G/DL (3.4-5.0) L Globulin 6.4 g/dL Albumin/Globulin Ratio 0.3 (1.0-2.7) L Triglycerides Level 174 MG/DL (0-200) Cholesterol Level 256 MG/DL (< 200) H LDL Cholesterol 199 mg/dL (<100) H HDL Cholesterol 26 MG/DL (40-60) L Cholesterol/HDL Ratio 9.8 (3.3-4.4) H Vitamin B12 Level 1533 PG/ML (193-986) H Folate 15.3 NG/ML (3.1-17.5) Thyroid Stimulating Hormone (TSH) < 0.007 uiU/mL (0.360-3.740) Current Medications Medications (Trade) Dose Ordered Sig/Quang Route PRN Reason Start Time Stop Time Status Last Admin Dose Admin Acetaminophen (Tylenol) 650 mg Q4H PRN ORAL fever (temp > 100.5F) 05/16/17 15:30 06/15/17 15:29 05/19/17 21:18 Albuterol/ Ipratropium (Albuterol/ Ipratropium) 3 ml Q4H PRN HHN Shortness of Breath 05/16/17 15:30 05/21/17 15:29 Desmopressin Acetate (Ddavp) 8 mcg Q12HR SUBQ 05/20/17 09:00 06/19/17 08:59 05/20/17 08:47 Dexamethasone Sodium Phosphate (Decadron 4mg/ml vial) 6 mg Q6HR IVP 05/18/17 18:00 06/17/17 17:59 05/20/17 13:00 Dextrose 1,000 ml @ 300 mls/hr Q3H20M IV 05/20/17 08:00 06/19/17 07:59 05/20/17 14:34 Dextrose (Dextrose 50%) STAT PRN IV Hypoglycemia 05/16/17 15:30 06/15/17 15:29 Lorazepam (Ativan 2mg/ml 1ml) 2 mg Q2H PRN IV For Anxiety 05/16/17 15:30 05/23/17 15:29 Morphine Sulfate (Morphine Sulfate) 4 mg Q4H PRN IVP Severe Pain (Pain Scale 7-10) 05/16/17 15:30 05/23/17 15:29 Ondansetron HCl (Zofran) 4 mg Q6H PRN IVP Nausea & Vomiting 05/16/17 15:30 06/15/17 15:29 Pantoprazole (Protonix) 40 mg DAILY IV 05/17/17 09:00 06/16/17 08:59 05/20/17 08:08 Phenytoin (Dilantin) 400 mg BEDTIME ORAL 05/18/17 21:00 06/17/17 20:59 05/19/17 21:18 Piperacillin/ Tazobactam/ Dextrose 50 ml @ 12.5 mls/hr Q8HR@0000,0800,1600 IVPB 05/16/17 16:00 05/23/17 15:59 05/20/17 15:22 Polyethylene Glycol (Miralax) 17 gm DAILYPRN PRN ORAL Constipation 05/16/17 15:30 06/15/17 15:29 Sulfacetamide Sodium (Sodium Sulamyd) 1 drop QID BOTH EYES 05/17/17 18:00 05/24/17 17:59 05/20/17 13:00 KENNEDY MATOS M.D. May 20, 2017 17:08
--- NOTE | 2017-05-20 18:30 | Electroencephalogram ---
DATE OF PROCEDURE: 05/20/2017 PROCEDURE PERFORMED: Electroencephalography. READING PHYSICIAN: Kosta Moctezuma M.D. REQUESTING PHYSICIAN: Celso Lund M.D. HISTORY: This is a 27-year-old man with a recent event of severe anoxic encephalopathy, presenting with progressive brain edema and central herniation, respiratory arrest, and clinical evidence of brain . EEG was requested to assess presence of electrical activity and to rule out electrocortical silence. Treatment now remained with Dilantin and vancomycin. During the recording, temperature remained at 98.0. Throughout the recording uniformly, there was no evidence of electrical activity except 2 millivolt irregular radiation compatible with electrical artifact. Painful stimulation, sternal rub produce no evidence of reactivity or any changes in the electrical silence. IMPRESSION: Electrocortical silence. Kosta Moctezuma M.D. DR: CHANTELLE JOB#: [id number] CC:
[2017-05-20 20:00] VITALS: BP 156/96
[2017-05-20] MEDS: Phenytoin 100mg cap ORAL SCH (21:00)
[2017-05-21] VITALS (21 sets, daily range): BP systolic 126–202; BP diastolic 73–142
[2017-05-21] MEDS: Zosyn 3.375gm/50ml Premix 50 ML IVPB SCH ×3 (01:03→16:11)
[2017-05-21] MEDS: Dexamethasone 4mg/ml vial IVP SCH ×5 (01:03→23:42)
[2017-05-21 05:28] LABS: MEAN CORPUSCULAR HEMOGLOBIN 28.1 PG (27.0-31.0); MEAN CORPUSCULAR HGB CONC 30.2 G/DL (32.0-36.0); MEAN CORPUSCULAR VOLUME 93 FL (80-99); MEAN PLATELET VOLUME 7.5 FL (6.5-10.1); PLATELET COUNT 354 K/UL (150-450); RED BLOOD COUNT 2.56 M/UL (4.70-6.10); RED CELL DISTRIBUTION WIDTH 17.6 % (11.6-14.8); WHITE BLOOD COUNT 11.8 K/UL (4.8-10.8)
[2017-05-21 06:01] LABS: ALANINE AMINOTRANSFERASE 237 U/L (12-78); ALBUMIN/GLOBULIN RATIO 0.4 (1.0-2.7); ANION GAP 11 mmol/L (5-15); ASPARTATE AMINO TRANSFERASE 232 U/L (15-37); CALCIUM 7.2 MG/DL (8.5-10.1); CARBON DIOXIDE 28 MMOL/L (21-32); CHLORIDE 111 MMOL/L (98-107); CREATININE 0.9 MG/DL (0.55-1.30); GLOMERULAR FILTRATION RATE > 60 mL/min (>60); MAGNESIUM 2.6 MG/DL (1.8-2.4); PHOSPHORUS 1.4 MG/DL (2.5-4.9); SODIUM 149 MMOL/L (136-145); TOTAL PROTEIN 7.7 G/DL (6.4-8.2)
[2017-05-21 06:03] LABS: POTASSIUM 2.7 MMOL/L (3.5-5.1)
[2017-05-21 06:28] LABS: CRP QUANT 2.3 mg/dL (0.00-0.90); URIC ACID 3.6 MG/DL (2.6-7.2)
[2017-05-21] MEDS: Potassium Chloride 10 MEQ in NS 110 ML IV SCH ×2 (09:32→11:02)
[2017-05-21] MEDS: Pantoprazole Inj IV SCH (09:33)
[2017-05-21] MEDS: Desmopressin (DDAVP) Inj SUBQ SCH (09:37)
[2017-05-21] MEDS: Sulfacetamide 10% Opth 15ml Btl BOTH EYES SCH ×4 (09:37→22:24)
[2017-05-21] MEDS ORDERED: Potassium Chloride 20 MEQ in D5W 275 ML IV ONE (10:30)
--- NOTE | 2017-05-21 11:20 | General Progress Note ---
Progress Note Progress Note pt remains obtunded, fixed and dilated pupils, no response to painful stimuli. Pt is without any doubt BRAIN , and therefore clinically . He has been a registered donor. [facility] has been contacted. Pts mother in law is agreeable. ZAYNAB GLASS May 21, 2017 11:20
[2017-05-21] MEDS ORDERED: Potassium Phosphate 30 MM in NS 275 ML IV ONE (12:30)
--- NOTE | 2017-05-21 12:44 | Infectious Diseases Prog Note ---
Assessment/Plan Assessment/Plan ASSESSMENT: The patient is a 27-year-old male with Fever, SP leukocytosis. improved ( on steroids ) Probable pneumonia. xray 05/19 : Patchy inferomedial atelectasis versus pneumonia unchanged Multiple wounds now are infected. Conjunctivitis Transaminitis Hepatitis panel : neg Ventilator-dependent respiratory failure. Status post trach and PEG placement. Anoxic encephalopathy. History of seizure disorder. PLAN: DC on IV Zosyn d# 5 Opht Sulfacetamide d# 5 Monitor CBC. Monitor BMP. Monitor cultures (blood ) Subjective Allergies: Coded Allergies: No Known Allergies (Unverified , 01/27/14) Subjective afebrile Objective Vital Signs Last 24 Hour Vital Signs Date Time Temp Pulse Resp B/P (MAP) Pulse Ox O2 Delivery O2 Flow Rate FiO2 05/21/17 12:00 35 05/21/17 10:41 64 14 35 05/21/17 08:39 68 14 35 05/21/17 08:00 96.1 68 14 140/94 100 Mechanical Ventilator 35 05/21/17 08:00 35 05/21/17 07:27 68 05/21/17 06:53 66 14 35 05/21/17 05:17 78 14 35 05/21/17 04:00 78 05/21/17 04:00 35 05/21/17 04:00 97.9 70 14 129/75 100 Mechanical Ventilator 35 05/21/17 03:30 79 14 35 05/21/17 01:29 78 14 35 05/21/17 00:00 97.6 74 14 129/73 100 Mechanical Ventilator 35 05/21/17 00:00 35 05/21/17 00:00 76 05/20/17 23:30 79 14 35 05/20/17 21:02 80 14 35 05/20/17 21:00 35 05/20/17 20:00 97.2 87 14 156/96 100 Mechanical Ventilator 35 05/20/17 19:47 79 05/20/17 19:30 78 14 35 05/20/17 16:48 77 14 35 05/20/17 16:00 35 05/20/17 16:00 83 05/20/17 16:00 97.2 79 14 137/84 100 Mechanical Ventilator 35 05/20/17 14:30 85 14 35 05/20/17 13:08 83 14 35 Height (Feet): 5 Height (Inches): 6.00 Weight (Pounds): 176 HEENT: anicteric Respiratory/Chest: no respiratory distress Cardiovascular: regular rhythm Abdomen: non distended Laboratory Tests Test 05/21/17 03:40 White Blood Count 11.8 K/UL (4.8-10.8) H Red Blood Count 2.56 M/UL (4.70-6.10) L Hemoglobin 7.2 G/DL (14.2-18.0) L Hematocrit 23.9 % (42.0-52.0) L Mean Corpuscular Volume 93 FL (80-99) Mean Corpuscular Hemoglobin 28.1 PG (27.0-31.0) Mean Corpuscular Hemoglobin Concent 30.2 G/DL (32.0-36.0) L Red Cell Distribution Width 17.6 % (11.6-14.8) H Platelet Count 354 K/UL (150-450) Mean Platelet Volume 7.5 FL (6.5-10.1) Neutrophils (%) (Auto) % (45.0-75.0) Lymphocytes (%) (Auto) % (20.0-45.0) Monocytes (%) (Auto) % (1.0-10.0) Eosinophils (%) (Auto) % (0.0-3.0) Basophils (%) (Auto) % (0.0-2.0) Sodium Level 149 MMOL/L (136-145) H Potassium Level 2.7 MMOL/L (3.5-5.1) *L Chloride Level 111 MMOL/L (98-107) H Carbon Dioxide Level 28 MMOL/L (21-32) Anion Gap 11 mmol/L (5-15) Blood Urea Nitrogen 27 mg/dL (7-18) H Creatinine 0.9 MG/DL (0.55-1.30) Estimat Glomerular Filtration Rate > 60 mL/min (>60) Glucose Level 455 MG/DL (74-106) #H Uric Acid 3.6 MG/DL (2.6-7.2) Calcium Level 7.2 MG/DL (8.5-10.1) L Phosphorus Level 1.4 MG/DL (2.5-4.9) L Magnesium Level 2.6 MG/DL (1.8-2.4) H Total Bilirubin 0.3 MG/DL (0.2-1.0) Aspartate Amino Transf (AST/SGOT) 232 U/L (15-37) H Alanine Aminotransferase (ALT/SGPT) 237 U/L (12-78) H Alkaline Phosphatase 529 U/L (46-116) H C-Reactive Protein, Quantitative 2.3 mg/dL (0.00-0.90) H Pro-B-Type Natriuretic Peptide 1020 pg/mL (0-125) H Total Protein 7.7 G/DL (6.4-8.2) Albumin 2.2 G/DL (3.4-5.0) L Globulin 5.5 g/dL Albumin/Globulin Ratio 0.4 (1.0-2.7) L Current Medications Medications (Trade) Dose Ordered Sig/Quang Route PRN Reason Start Time Stop Time Status Last Admin Dose Admin Acetaminophen (Tylenol) 650 mg Q4H PRN ORAL fever (temp > 100.5F) 05/16/17 15:30 06/15/17 15:29 05/19/17 21:18 Albuterol/ Ipratropium (Albuterol/ Ipratropium) 3 ml Q4H PRN HHN Shortness of Breath 05/16/17 15:30 05/21/17 15:29 Desmopressin Acetate (Ddavp) 8 mcg Q12HR SUBQ 05/20/17 09:00 06/19/17 08:59 05/21/17 09:37 Dexamethasone Sodium Phosphate (Decadron 4mg/ml vial) 6 mg Q6HR IVP 05/18/17 18:00 06/17/17 17:59 05/21/17 12:41 Dextrose 1,000 ml @ 100 mls/hr Q10H IV 05/21/17 10:00 06/20/17 09:59 05/21/17 11:02 Dextrose (Dextrose 50%) STAT PRN IV Hypoglycemia 05/16/17 15:30 06/15/17 15:29 Lorazepam (Ativan 2mg/ml 1ml) 2 mg Q2H PRN IV For Anxiety 05/16/17 15:30 05/23/17 15:29 Morphine Sulfate (Morphine Sulfate) 4 mg Q4H PRN IVP Severe Pain (Pain Scale 7-10) 05/16/17 15:30 05/23/17 15:29 Ondansetron HCl (Zofran) 4 mg Q6H PRN IVP Nausea & Vomiting 05/16/17 15:30 06/15/17 15:29 Pantoprazole (Protonix) 40 mg DAILY IV 05/17/17 09:00 06/16/17 08:59 05/21/17 09:33 Phenytoin (Dilantin) 400 mg BEDTIME ORAL 05/18/17 21:00 06/17/17 20:59 05/20/17 21:00 Piperacillin/ Tazobactam/ Dextrose 50 ml @ 12.5 mls/hr Q8HR@0000,0800,1600 IVPB 05/16/17 16:00 05/23/17 15:59 05/21/17 08:28 Polyethylene Glycol (Miralax) 17 gm DAILYPRN PRN ORAL Constipation 05/16/17 15:30 06/15/17 15:29 Potassium Phosphate 30 mm/ Sodium Chloride 285 ml @ 47.5 mls/hr ONCE ONCE IV 05/21/17 12:30 05/21/17 18:29 Sulfacetamide Sodium (Sodium Sulamyd) 1 drop QID BOTH EYES 05/17/17 18:00 05/24/17 17:59 05/21/17 09:37 KENNEDY MATOS M.D. May 21, 2017 12:44
--- NOTE | 2017-05-21 15:17 | Nephrology Progress Note ---
Assessment/Plan Problem List: (1) Diabetes insipidus, neurohypophyseal (2) severe postanoxic encephalopathy (3) postanoxic brain edema with truncal herniation Assessment Suspect DI- lytes and renal parameters improved Brain ?? others: probable sepsis possible PNA diffused cerebral edema seizure disorder VDRF/trach anoxic encephalopathy anemia dehydration hyper Na ( likely due to dehydration and free water deficit0 transaminitis possible protein calorie malnutrition dysphagia, G tube Plan PLAN OF CARE Neuro advise if brain ?? Terminal extubation?? IVF with dextrose, vent support trach care pulmonary toilet Urine studies DDAVP monitor lytes Subjective ROS Limited/Unobtainable: Yes Objective Objective Last 24 Hour Vital Signs Date Time Temp Pulse Resp B/P (MAP) Pulse Ox O2 Delivery O2 Flow Rate FiO2 05/21/17 14:36 69 14 35 05/21/17 12:38 66 14 35 05/21/17 12:00 35 05/21/17 12:00 96.1 72 14 154/100 99 Mechanical Ventilator 35 05/21/17 11:41 67 05/21/17 10:41 64 14 35 05/21/17 08:39 68 14 35 05/21/17 08:00 96.1 68 14 140/94 100 Mechanical Ventilator 35 05/21/17 08:00 35 05/21/17 07:27 68 05/21/17 06:53 66 14 35 05/21/17 05:17 78 14 35 05/21/17 04:00 78 05/21/17 04:00 35 05/21/17 04:00 97.9 70 14 129/75 100 Mechanical Ventilator 35 05/21/17 03:30 79 14 35 05/21/17 01:29 78 14 35 05/21/17 00:00 97.6 74 14 129/73 100 Mechanical Ventilator 35 05/21/17 00:00 35 05/21/17 00:00 76 05/20/17 23:30 79 14 35 05/20/17 21:02 80 14 35 05/20/17 21:00 35 05/20/17 20:00 97.2 87 14 156/96 100 Mechanical Ventilator 35 05/20/17 19:47 79 05/20/17 19:30 78 14 35 05/20/17 16:48 77 14 35 05/20/17 16:00 35 05/20/17 16:00 83 05/20/17 16:00 97.2 79 14 137/84 100 Mechanical Ventilator 35 Intake and Output 05/21/17 05/22/17 19:00 07:00 Intake Total 1067.5 ml Balance 1067.5 ml Intake Free Water 100 ml IV Total 817.5 ml Tube Feeding 150 ml Laboratory Tests 05/21/17 03:40: White Blood Count 11.8H, Red Blood Count 2.56L, Hemoglobin 7.2L, Hematocrit 23.9L, Mean Corpuscular Volume 93, Mean Corpuscular Hemoglobin 28.1, Mean Corpuscular Hemoglobin Concent 30.2L, Red Cell Distribution Width 17.6H, Platelet Count 354, Mean Platelet Volume 7.5, Neutrophils (%) (Auto) , Lymphocytes (%) (Auto) , Monocytes (%) (Auto) , Eosinophils (%) (Auto) , Basophils (%) (Auto) , Sodium Level 149H, Potassium Level 2.7*L, Chloride Level 111H, Carbon Dioxide Level 28, Anion Gap 11, Blood Urea Nitrogen 27H, Creatinine 0.9, Estimat Glomerular Filtration Rate > 60, Glucose Level 455#H, Uric Acid 3.6, Calcium Level 7.2L, Phosphorus Level 1.4L, Magnesium Level 2.6H, Total Bilirubin 0.3, Aspartate Amino Transf (AST/SGOT) 232H, Alanine Aminotransferase (ALT/SGPT) 237H, Alkaline Phosphatase 529H, C-Reactive Protein , Quantitative 2.3H, Pro-B-Type Natriuretic Peptide 1020H, Total Protein 7.7, Albumin 2.2L, Globulin 5.5, Albumin/Globulin Ratio 0.4L Height (Feet): 5 Height (Inches): 6.00 Weight (Pounds): 176 General Appearance: no apparent distress Neurologic: other - comatose VALENTE NIELSEN May 21, 2017 15:17
[2017-05-21] MEDS ORDERED: Tubing IV Secondary IV ONE ×3 (18:25→21:20)
[2017-05-21] MEDS ORDERED: NS 275ml ONE ×2 (18:25→21:20)
[2017-05-21] MEDS ORDERED: Miralax 17gm pkt ORAL PRN (19:00)
[2017-05-21] MEDS ORDERED: Morphine Sulfate 4mg/ml Inj IVP PRN (19:30)
[2017-05-21] MEDS ORDERED: Vasopressin 100 UNITS in NS 95 ML IV ONE (19:30)
[2017-05-21] MEDS ORDERED: LORazepam Inj 2mg/ml 1ml IV PRN (19:30)
[2017-05-21] MEDS ORDERED: Phenytoin 100mg cap ORAL SCH (21:00)
[2017-05-21] MEDS ORDERED: Desmopressin (DDAVP) Inj SUBQ SCH (21:00)
[2017-05-21] MEDS ORDERED: Solu-MEDROL 40mg Inj IVP SCH (22:00)
[2017-05-22] VITALS (31 sets, daily range): BP systolic 125–197; BP diastolic 102–143
[2017-05-22] MEDS ORDERED: Dexamethasone 4mg/ml vial IVP SCH
[2017-05-22] MEDS: Zosyn 3.375gm/50ml Premix 50 ML IVPB SCH ×2 (00:14→08:04)
[2017-05-22 00:47] LABS: MEAN CORPUSCULAR HEMOGLOBIN 27.8 PG (27.0-31.0); MEAN CORPUSCULAR HGB CONC 31.8 G/DL (32.0-36.0); MEAN CORPUSCULAR VOLUME 87 FL (80-99); MEAN PLATELET VOLUME 7.9 FL (6.5-10.1); PLATELET COUNT 338 K/UL (150-450); RED BLOOD COUNT 2.66 M/UL (4.70-6.10); RED CELL DISTRIBUTION WIDTH 16.2 % (11.6-14.8); WHITE BLOOD COUNT 11.9 K/UL (4.8-10.8)
[2017-05-22 00:52] LABS: APPEARANCE,URINE CLEAR; KETONES,URINE NEGATIVE (NEGATIVE); LEUKOCYTE ESTERASE ,URINE NEGATIVE (NEGATIVE); NITRITE,URINE NEGATIVE (NEGATIVE); PH,URINE 7 (4.5-8.0); PROTEIN,URINE 2+ (NEGATIVE); UROBILINOGEN,URINE NORMAL MG/DL (0.0-1.0)
[2017-05-22 01:07] LABS: ABG ALLEN TEST POSITIVE; ABG BASE EXCESS 0.9; ABG PCO2 56.6 mmHg (35.0-45.0)
[2017-05-22 01:07] LABS: INR 1.2 (0.9-1.1); PROTHROMBIN TIME 12.2 SEC (9.30-11.50)
[2017-05-22 01:08] LABS: ALANINE AMINOTRANSFERASE 252 U/L (12-78); ALBUMIN/GLOBULIN RATIO 0.6 (1.0-2.7); ANION GAP 11 mmol/L (5-15); ASPARTATE AMINO TRANSFERASE 149 U/L (15-37); CALCIUM 7.5 MG/DL (8.5-10.1); CARBON DIOXIDE 26 MMOL/L (21-32); CHLORIDE 106 MMOL/L (98-107); CREATININE 0.6 MG/DL (0.55-1.30); GLOMERULAR FILTRATION RATE > 60 mL/min (>60); POTASSIUM 3.5 MMOL/L (3.5-5.1); SODIUM 143 MMOL/L (136-145); TOTAL PROTEIN 9.1 G/DL (6.4-8.2)
[2017-05-22 01:12] LABS: RBC,URINE 0-2 /HPF (0 - 0); WBC,URINE 0-2 /HPF (0 - 0)
[2017-05-22 01:17] LABS: AMYLASE 73 U/L (25-115); BILIRUBIN,DIRECT 0.1 MG/DL (0.0-0.3); CKMB 1.1 NG/ML (0.0-3.6); LACTATE DEHYDROGENASE 481 U/L (81-234); LIPASE 190 U/L (73-393); MAGNESIUM 2.6 MG/DL (1.8-2.4); PHOSPHORUS 2.7 MG/DL (2.5-4.9)
[2017-05-22] MEDS ORDERED: Calcium Gluconate 1gm/10ml vial IVP ONE (02:00)
[2017-05-22] MEDS: Dexamethasone 4mg/ml vial IVP SCH (04:33)
[2017-05-22 06:24] LABS: MEAN CORPUSCULAR HGB CONC 29.8 G/DL (32.0-36.0); MEAN CORPUSCULAR VOLUME 91 FL (80-99); MEAN PLATELET VOLUME 7.5 FL (6.5-10.1); PLATELET COUNT 330 K/UL (150-450); RED BLOOD COUNT 2.86 M/UL (4.70-6.10); RED CELL DISTRIBUTION WIDTH 16.3 % (11.6-14.8); WHITE BLOOD COUNT 11.4 K/UL (4.8-10.8)
[2017-05-22 06:45] LABS: INR 1.1 (0.9-1.1)
[2017-05-22 06:53] LABS: ALANINE AMINOTRANSFERASE 235 U/L (12-78); ALBUMIN/GLOBULIN RATIO 0.7 (1.0-2.7); ANION GAP 8 mmol/L (5-15); ASPARTATE AMINO TRANSFERASE 120 U/L (15-37); CALCIUM 8.5 MG/DL (8.5-10.1); CARBON DIOXIDE 29 MMOL/L (21-32); CHLORIDE 99 MMOL/L (98-107); CREATININE 0.7 MG/DL (0.55-1.30); GLOMERULAR FILTRATION RATE > 60 mL/min (>60); POTASSIUM 3.5 MMOL/L (3.5-5.1); SODIUM 136 MMOL/L (136-145); TOTAL PROTEIN 9.2 G/DL (6.4-8.2)
[2017-05-22 07:07] LABS: ABG PCO2 43.9 mmHg (35.0-45.0)
[2017-05-22 07:08] LABS: ABG ALLEN TEST POSITIVE; ABG BASE EXCESS 2.8
[2017-05-22 07:12] LABS: AMYLASE 71 U/L (25-115); BILIRUBIN,DIRECT 0.2 MG/DL (0.0-0.3); CKMB 2.8 NG/ML (0.0-3.6); LACTATE DEHYDROGENASE 470 U/L (81-234); LIPASE 159 U/L (73-393); MAGNESIUM 2.2 MG/DL (1.8-2.4); PHOSPHORUS 2.6 MG/DL (2.5-4.9)
[2017-05-22] MEDS: Sulfacetamide 10% Opth 15ml Btl BOTH EYES SCH (08:04)
[2017-05-22] MEDS ORDERED: Pantoprazole Inj IV SCH (09:00)
[2017-05-22 10:34] LABS: BAND NEUTROPHILS % (MANUAL) 0 % (0-8); BASOPHILS % (MANUAL) 0 % (0-2); EOSINOPHILS % (MANUAL) 0 % (0-3); LYMPHOCYTES % (MANUAL) 32 % (20-45); NEUTROPHILS % (MANUAL) 60 % (45-75); NUCLEATED RED BLOOD CELLS 8 /100 WBC; PLATELET ESTIMATE ADEQUATE; TOTAL CELLS COUNTED 100
[2017-05-22 10:35] LABS: ANISOCYTOSIS 1+; HYPOCHROMASIA 3+; PLATELET MORPHOLOGY NORMAL
--- NOTE | 2017-05-22 12:11 | Diagnostic Imaging Report ---
Indication: Dyspnea Comparison: 05/21/2017 A single view chest radiograph was obtained. Findings: Cardiomediastinal appearance is within normal limits for age. Tracheostomy noted. Pulmonary vascularity is appropriate. There is mild infiltrate versus atelectasis at the lung bases unchanged. The diaphragmatic contour is smooth and costophrenic angles are sharp. No pleural effusions are identified. The bones are unremarkable. Impression: No change from one day earlier
--- NOTE | 2017-05-22 12:52 | Diagnostic Imaging Report ---
Indication: Dyspnea Comparison: None A single view chest radiograph was obtained. Findings: Patchy basal atelectasis versus infiltrate again demonstrated unchanged. Tracheostomy noted. Heart size is stable. Impression: No change
--- NOTE | 2017-05-23 12:41 | Cardiology Report ---
APPROVED REPORT EXAM: Two-dimensional and M-mode echocardiogram with Doppler and color Doppler. INDICATION [facility] Patient M-Mode DIMENSIONS IVSd1.0 (0.7-1.1cm)Left Atrium (MM)3.3 (1.6-4.0cm) LVDd5.2 (3.5-5.6cm)Aortic Root2.7 (2.0-3.7cm) PWd1.0 (0.7-1.1cm)Aortic Cusp Exc.1.9 (1.5-2.0cm) LVDs3.6 (2.5-4.0cm) PWs1.6 cm Normal left ventricular chamber size. Mild global left ventricular hypokinesis. Left ventricular ejection fraction estimated to be 45 %. No evidence of left ventricular hypertrophy. Anterior Echo-free space, may be due to pericardial fat or effusion. All other cardiac chamber sizes are within normal limits. Mild focal aortic valve sclerosis with adequate cusp excursion. Mildly thickened mitral valve leaflets with normal excursion. Mild mitral annulus and aortic root calcification. Pulmonic valve not well visualized. Normal tricuspid valve structure. IVC dilated at 2.6 cm without physiologic collapse, estimated RAP is 15 mmHg. A color flow and spectral Doppler study was performed and revealed: Trace aortic regurgitation. Moderate mitral regurgitation. Mitral inflow velocities indicates possible pseudo normalization pattern implying moderately elevated left atrial pressure (Grade II ). Mild tricuspid regurgitation. Tricuspid systolic velocities suggests peak right ventricular systolic pressure of 33 mmHg. No pulmonic regurgitation present.
--- NOTE | 2017-05-27 13:12 | Discharge Summary ---
Discharge Summary Hospital Course Date of Admission May 16, 2017 at 14:36 Date of Discharge May 21, 2017 at 18:26 Admitting Diagnosis SEIZURE HPI Amialexandra Tapia is a 27 year old male who was admitted on May 16, 2017 at 14:36 for Seizure Hospital Course summary #[id number] Discharge Discharge Disposition Patient / Discharge Diagnoses: Fausto ([facility])Isabel NP May 27, 2017 13:12
--- NOTE | 2017-05-28 03:30 | Discharge Summary 2 SIG ---
SUMMARY DATE OF ADMISSION: 05/16/2017 DATE OF DISCHARGE: 05/21/2017 REASON FOR ADMISSION: 27-year-old male was sent from the [facility] for evaluation. The patient had a recent history of intractable seizure activity resulting in cardiac arrest for 20 minutes with subsequent intubation. Patient was unable to be weaned, tracheostomy and G-tube were subsequently placed. As a result of prolonged cardiac arrest, the patient suffered anoxic brain injury and was comatose . Workup in the emergency room revealed leukocytosis- 11.6, anemia: hemoglobin -9.0, hematocrit -28.7, sodium -146, BUN -21, and creatinine -0.9. CT of the head revealed evidence of diffuse cerebral edema with a likely uncal herniation bilaterally. Elevated LFT: AST -175, ALT- 103, and low albumin -2.0. Chest x-ray revealed right perihilar atelectasis versus consolidation. The patient was admitted for further management with diagnosis of leukocytosis, possible sepsis, probable pneumonia, diffuse cerebral edema, anoxic encephalopathy, seizure disorder and transaminitis. HOSPITAL STAY: The patient was admitted to [facility]. Neurology, Infectious Disease and Nephrology consults were requested. The patient was started on the IV fluids. The patient was started on empiric antibiotic. The patient was started on Decadron for cerebral edema. LFTs were closely monitored. Blood cultures were negative. Urine cultures were negative. Sputum culture grew Acinetobacter, multidrug-resistant and Pseudomonas multidrug-resistant. ID specialist directed IV antibiotics. Neurologist evaluated the patient and concluded that the patient had postanoxic brain edema with uncal herniation. Family requested proof that the brain was not working. The patient subsequently on 05/20/2017 undergone EEG. EEG revealed electrocortical silence. The patient had a brain according to the results of the EEG, and therefore was clinically . The patient was pronounced brain and therefore clinically at 11:08 05/21/17. While under neuro evaluation, management of current condition was provided. Patient was on IV antibiotics, as mentioned above. LFTs were closely monitored, small trend down. Abdominal ultrasound revealed no evidence of gallstones or dilated duct. Hepatitis panel was negative. The patient was managed with antiepileptic medication regimen (Dilantin). Senior Examiner closely followed the patient due to the severe hypernatremia. The highest sodium -172. According to neonatal doctor, the patient had a diabetic insipidus neurohypophyseal. IV fluid with dextrose was provided. Electrolytes and renal parameters were closely monitored and corrected as needed. Wound care was provided as per the wound care nurse recommendation. Followup chest x-ray revealed same evidence of right perihilar atelectasis versus infiltrate. The patient was a registered donor. [facility] was contracted for harvesting the organs, which was done subsequently. An echocardiogram was done prior to harvesting the organs and revealed ejection fraction of 45% and right ventricular systolic pressure of 33. FINAL DIAGNOSES: 1. Possible sepsis. 2. Probable pneumonia with Acinetobacter multidrug-resistant and Pseudomonas multidrug-resistant. 3. Status post full cardiac arrest. 4. Post anoxic brain edema with uncal herniation. 5. Ventilator-dependent respiratory failure tracheostomy. 6. Chronic seizure disorder. 7. Dehydration. 8. 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 9. Transaminitis. 10. Dysphagia gastrostomy tube. 11. Upper decubitus stage II, present on admission. 12. Anemia of chronic disease. Celso Lund M.D. Isabel ShirleyMontefiore New Rochelle HospitalNayan N.PMark DR: BO JOB#: [id number] CC: DIANA
--- NOTE | 2017-06-01 16:24 | Cardiology Report ---
APPROVED REPORT EKG Measurement Heart [id number] Normal sinus rhythm Septal infarct, age undetermined Incomplete LBBB Prolonged QT Abnormal ECG
== END 2017-05-21 18:26 | disposition expired | DRG 720 ==
LOC: EDBD 13:02 → EDBEDREQ 13:28 → EMR 13:55 → EDBEDREQSVC 13:58 → 2W 14:36 → EDBEDREQ 14:46 → ICU 05-21 18:25
PROC: 5A1955Z Respiratory Ventilation, Greater than 96 Consecutive Hours (ICD-10-PCS; principal; 2017-05-16)
DX: A41.9 Sepsis, unspecified organism (principal); G93.6 Cerebral edema; G93.5 Compression of brain; R40.20 Unspecified coma; J15.1 Pneumonia due to Pseudomonas; G93.1 Anoxic brain damage, not elsewhere classified; E23.2 Diabetes insipidus; J15.6 Pneumonia due to other Gram-negative bacteria; J96.10 Chronic respiratory failure, unspecified whether with hypoxia or hypercapnia; Z99.11 Dependence on respirator [ventilator] status; E46 Unspecified protein-calorie malnutrition; Z43.0 Encounter for attention to tracheostomy; E87.0 Hyperosmolality and hypernatremia; E86.0 Dehydration; Z16.24 Resistance to multiple antibiotics; G40.909 Epilepsy, unspecified, not intractable, without status epilepticus; R74.0 Nonspecific elevation of levels of transaminase and lactic acid dehydrogenase [LDH]; E87.6 Hypokalemia; Z43.1 Encounter for attention to gastrostomy; Z86.74 Personal history of sudden cardiac arrest; H10.9 Unspecified conjunctivitis; R13.10 Dysphagia, unspecified; L89.620 Pressure ulcer of left heel, unstageable; L89.610 Pressure ulcer of right heel, unstageable; L89.102 Pressure ulcer of unspecified part of back, stage 2; L89.150 Pressure ulcer of sacral region, unstageable; L89.322 Pressure ulcer of left buttock, stage 2; L89.312 Pressure ulcer of right buttock, stage 2; D63.8 Anemia in other chronic diseases classified elsewhere
CPT/HCPCS: 36415; 36600; 70450; 71010; 76700; 80048; 80053; 80061; 80069; 80076; 80185; 81001; 82150; 82248; 82550; 82553; 82607; 82728; 82746; 82803; 82977; 83036; 83540; 83550; 83605; 83615; 83690; 83735; 83880; 83935; 84100; 84134; 84300; 84443; 84484; 84550; 85007; 85025; 85610; 85730; 86140; 86705; 86709; 86803; 86850; 86900; 86901; 87040; 87070; 87081; 87086; 87181; 87205; 87340; 93005; 93306; 93970; 94002; 94003; 94664; 97802; 99285

== ENCOUNTER 2017-05-21 18:27 | Inpatient (IN) | payer OTHER ==
[~2017-05-21] VITALS: Ht 167.6 cm; Wt 76.8 kg
[~2017-05-21 18:27] MED LIST changes: +ACETAMINOP160 MG/51 GT; +COLACE100 MG GT; +DESMOPRESS4 MCG/1 ML SUBQ; +DULCOLAX10 MG RC; +FLEET ENEMA133 ML RECTAL; +HYDRALAZINE HCL10 MG ORAL; +LEVETIRACE100 MG/1 M GT; +LOVENOX10 M4 SUBQ; +MILK OF MA400 MG/51 GT; +MULTI-DELYN237 ML GT; +PANTOPRAZOLE SO40 MG GT; +UTI-STAT L3875 MG/31 GT; +VITAMIN C500 MG/11 PO; +ZINC SULFATE220 M1 GT
[2017-05-22] VITALS (13 sets, daily range): BP systolic 103–158; BP diastolic 54–102
--- NOTE | 2017-05-22 10:48 | Consultation ---
History of Present Illness General Date patient seen: May 22, 2017 Present Illness HPI Marcus Tapia is a very unfortunate 27 year old male with history of seizures who has recently become an organ donor after anoxic brain insult with herniation. Patient had a deleterious seizure with cardiac arrest a while ago and has been in care facility and hospitals since. Prior had trach and peg placement and has been cared for since. Recently had another seizure with resulting anoxic brain injury and herniation. Given condition and prognosis he was pronounced and stabilized for organ donation. Surgery called for evaluation and line placement. Discussed care with PMD, nursing staff, and [facility]. EMR reviewed. Patient examined. Allergies: Coded Allergies: No Known Allergies (Unverified , 01/27/14) Medication History Scheduled Desmopressin Acetate (Desmopressin Acetate), 4 MCG SUBQ EVERY 12 HOURS, ( Reported) Docusate Sodium* (Colace*), 100 MG GT DAILY, (Reported) Enoxaparin* (Lovenox*), 40 MG SUBQ BID, (Reported) Levetiracetam* (Levetiracetam*), 1,500 MG GT BID, (Reported) Multivitamin Liquid* (Multi-Delyn*), 5 ML GT DAILY, (Reported) Na Phos,M-B/Na Phos,Di-Ba* (Fleet Enema*), 133 ML RECTAL DAILY, (Reported) Pantoprazole* (Pantoprazole*), 40 MG GT DAILY, (Reported) Phenytoin Sodium Extended* (Dilantin*), 300 MG ORAL BEDTIME Vit C/Ascorbate Ca/Ascorb Sod (Vitamin C 500 Mg/15 Ml Liquid), 500 MG PO DAILY, (Reported) Zinc Sulfate (Zinc Sulfate*), 220 MG GT DAILY, (Reported) Scheduled PRN Acetaminophen* (Acetaminophen*), 640 MG GT Q6H PRN for Mild Pain/Temp > 100.5, ( Reported) Bisacodyl (Dulcolax), 10 MG RC NEEDED PRN for Constipation, (Reported) Hydralazine Hcl* (Hydralazine Hcl*), 20 MG ORAL EVERY 6 HOURS PRN for For High Blood Pressure, (Reported) Magnesium Hydroxide* (Milk Of Magnesia*), 30 ML GT DAILY PRN for Constipation, ( Reported) Miscellaneous Medications Cran/Vitc/Mannose/Inulin/Brom (Uti-Stat Liquid), 3,875 MG GT, (Reported) Patient History Limited by: medical condition History Provided By: Medical Record, PMD Healthcare decision maker Resuscitation status Advanced Directive on File Past Medical/Surgical History Past Medical/Surgical History: (1) Hypernatremia (2) Seizure disorder (3) Transaminitis (4) Respirator dependent (5) severe postanoxic encephalopathy (6) postanoxic brain edema with truncal herniation (7) now in clinical as of 05/19/17 (8) Diabetes insipidus, neurohypophyseal Review of Systems ROS Narrative unable to obtain given current condition Physical Exam General Appearance: other - n/a Lines, tubes and drains: peripheral, trach HEENT: mucous membranes moist Neck: normal inspection, trach Respiratory/Chest: on vent Cardiovascular/Chest: normal peripheral pulses Abdomen: soft, no mass Extremities: no edema, no cyanosis Skin Exam: warm/dry Neurologic: other - n/a Assessment/Plan Problem List: (1) postanoxic brain edema with truncal herniation Assessment & Plan: Anoxic brain edema with herniation pronounced and currently organ donor. -Requires central and arterial line which will be placed today at bedside by myself. -will follow thank you for this consultation Status: other - Organ Donor Ady Trejo May 22, 2017 10:48
--- NOTE | 2017-05-22 10:49 | Pulmonolgy Critical Care Note ---
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
--- NOTE | 2017-05-22 10:53 | Operative Note - PDOC ---
Operative Note Operative Note Date of Operation/Procedure: May 22, 2017 Pre-op Diagnosis: anoxic brain injury with herniation; currently organ donor Procedure: left radial arterial line insertion Post-op Diagnosis: same as pre-op Surgeon: Ady Trejo MD Dust Control Engineer: n/a Additional Surgeons: n/a Anesthesiologist: n/a Anesthesia: other - n/a Specimen: none Complications: none Condition: stable Fluids: n/a Estimated Blood Loss: minimal Drains: none Implant(s) used?: No Indications for Procedure 27 year old male with anoxic brain injury with herniation who has been pronounced and currently an organ donor. Requires arterial line placement Description of Procedure The patient was lying in the supine position. The skin was thoroughly sponged with chlorhexidine and allowed to dry. All persons involved were shielded with hairnets, facemasks and sterile gowns. With sterile gloved hands the left wrist area was draped with sterile towels. The radial artery was carefully palpated and identified. After collateral flow was determined by Marcus test, an over-the- needle catheter was advanced at a 45-degree angle into the lumen of the artery until the flash chamber was seen to rapidly fill with bright red blood. The needle was then held in place while the catheter was advanced over the guide wire into proper position. Bright red pulsatile blood was seen from the catheter as the tubing was being connected. The catheter was stabilized and sutured to the skin with 2-0 silk. A good waveform was seen on the monitor. A sterile bio-occlusive dressing was placed over the catheter, including the insertion site. Ady Trejo May 22, 2017 10:53
--- NOTE | 2017-05-22 10:56 | Operative Note - PDOC ---
Operative Note Operative Note Pre-op Diagnosis: anoxic brain injury with herniation; currently organ donor Procedure: right femoral central line insertion Post-op Diagnosis: same as pre-op Surgeon: Ady Trejo MD Automotive Parts Manager: n/a Additional Surgeons: n/a Anesthesiologist: n/a Anesthesia: other - n/a Specimen: none Complications: none Condition: stable Fluids: n/a Estimated Blood Loss: minimal Drains: none Implant(s) used?: No Indications for Procedure 27 year old male with anoxic brain injury with herniation who has been pronounced and currently an organ donor. Requires central line placement Description of Procedure The patient was lying in the supine position. All persons involved were shielded with hairnets, facemasks and sterile gowns. With sterile-gloved hands the right femoral area was thoroughly sponged with chlorhexidine and allowed to dry. The area was draped with the large disposable sterile field provided in the kit. The femoral artery was palpated for anatomical landmark. A finder needle was advanced at a 45-degree angle toward the inguinal ligament until the syringe was seen to fill with venous blood. Venous blood was confirmed. The needle was then held in place while the guide wire was advanced. The needle was then removed. A skin dilator was advanced over the guidewire and removed, then the triple-lumen catheter was advanced over the guide wire into proper position. The guide wire was removed and discarded. The ports were aspirated which showed good blood return indicating proper position into the vein and then carefully flushed with normal saline. The catheter was stabilized and sutured to the skin with 2-0 silk at 2 anchor ports. A sterile bio-occlusive dressing was placed over the catheter, including the insertion site. Ady Trejo May 22, 2017 10:56
[2017-05-22] MEDS ORDERED: KCl 10% 20 mEq/15ml liquid GT ONE (12:00)
[2017-05-22] MEDS ORDERED: acetaZOLAMIDE 500mg Inj IVP ONE (12:00)
[2017-05-22 12:21] LABS: ABG ALLEN TEST POSITIVE; ABG BASE EXCESS 3.1; ABG PCO2 40.2 mmHg (35.0-45.0)
[2017-05-22 12:26] LABS: MEAN CORPUSCULAR HEMOGLOBIN 26.5 PG (27.0-31.0); MEAN CORPUSCULAR HGB CONC 29.9 G/DL (32.0-36.0); MEAN CORPUSCULAR VOLUME 89 FL (80-99); MEAN PLATELET VOLUME 7.1 FL (6.5-10.1); PLATELET COUNT 312 K/UL (150-450); RED BLOOD COUNT 2.53 M/UL (4.70-6.10); RED CELL DISTRIBUTION WIDTH 16.1 % (11.6-14.8); WHITE BLOOD COUNT 11.4 K/UL (4.8-10.8)
[2017-05-22] MEDS ORDERED: LEVOTHYROXINE SODIUM IV SCH ×2 (12:30→22:30)
[2017-05-22] MEDS ORDERED: NS IV SCH ×2 (12:30→22:30)
[2017-05-22 12:33] LABS: APPEARANCE,URINE CLEAR; KETONES,URINE NEGATIVE (NEGATIVE); LEUKOCYTE ESTERASE ,URINE NEGATIVE (NEGATIVE); NITRITE,URINE NEGATIVE (NEGATIVE); PH,URINE 6.5 (4.5-8.0); PROTEIN,URINE 3+ (NEGATIVE); UROBILINOGEN,URINE NORMAL MG/DL (0.0-1.0)
[2017-05-22 12:40] LABS: INR 1.1 (0.9-1.1)
[2017-05-22 12:42] LABS: BACTERIA,URINE OCCASIONAL /HPF; WBC,URINE 0-2 /HPF (0 - 0)
[2017-05-22 12:43] LABS: RBC,URINE 0-2 /HPF (0 - 0)
[2017-05-22 12:44] LABS: ALANINE AMINOTRANSFERASE 193 U/L (12-78); ALBUMIN/GLOBULIN RATIO 0.9 (1.0-2.7); ANION GAP 11 mmol/L (5-15); ASPARTATE AMINO TRANSFERASE 80 U/L (15-37); CALCIUM 8.3 MG/DL (8.5-10.1); CARBON DIOXIDE 28 MMOL/L (21-32); CHLORIDE 98 MMOL/L (98-107); CREATININE 0.7 MG/DL (0.55-1.30); GLOMERULAR FILTRATION RATE > 60 mL/min (>60); POTASSIUM 3.2 MMOL/L (3.5-5.1); SODIUM 137 MMOL/L (136-145); TOTAL PROTEIN 8.3 G/DL (6.4-8.2)
[2017-05-22 12:56] LABS: AMYLASE 61 U/L (25-115); BILIRUBIN,DIRECT 0.2 MG/DL (0.0-0.3); CKMB 1.2 NG/ML (0.0-3.6); LACTATE DEHYDROGENASE 392 U/L (81-234); LIPASE 123 U/L (73-393); MAGNESIUM 2.1 MG/DL (1.8-2.4)
[2017-05-22] MEDS ORDERED: [UNRECOGNIZED DRUG - OTHER] IV ONE ×9 (13:30→14:00)
[2017-05-22] MEDS ORDERED: POTASSIUM CHLORIDE IV ONE ×10 (13:30→14:00)
[2017-05-22] MEDS ORDERED: INSULIN HUMAN REGULAR IV ONE ×10 (13:30→14:00)
[2017-05-22] MEDS ORDERED: [UNRECOGNIZED DRUG - OTHER] IV ONE (14:00)
[2017-05-22 14:11] LABS: ANISOCYTOSIS 1+; BAND NEUTROPHILS % (MANUAL) 0 % (0-8); BASOPHILS % (MANUAL) 0 % (0-2); EOSINOPHILS % (MANUAL) 2 % (0-3); HYPOCHROMASIA 3+; LYMPHOCYTES % (MANUAL) 31 % (20-45); NEUTROPHILS % (MANUAL) 56 % (45-75); NUCLEATED RED BLOOD CELLS 5 /100 WBC; PLATELET ESTIMATE ADEQUATE; TOTAL CELLS COUNTED 100
[2017-05-22 14:12] LABS: PLATELET MORPHOLOGY NORMAL
[2017-05-22] MEDS: Vasopressin 100 UNITS in NS 95 ML IV SCH (15:00)
[2017-05-22] MEDS ORDERED: Sodium Chloride 500ML 550 ML IV ONE (15:00)
[2017-05-22] MEDS ORDERED: Albumin Human 25% 100ml IV ONE (16:39)
[2017-05-22] MEDS ORDERED: Albumin Human 5% 500ml IV ONE (16:39)
[2017-05-22] MEDS: DOBUTamine 250mg/250ml Premix 250 ML IV SCH (17:20)
[2017-05-22 18:04] LABS: ABG PCO2 46.6 mmHg (35.0-45.0)
[2017-05-22 18:05] LABS: ABG ALLEN TEST POSITIVE; ABG BASE EXCESS 1.2
[2017-05-22 18:25] LABS: APPEARANCE,URINE CLEAR; KETONES,URINE NEGATIVE (NEGATIVE); LEUKOCYTE ESTERASE ,URINE 1+ (NEGATIVE); NITRITE,URINE NEGATIVE (NEGATIVE); PH,URINE 8 (4.5-8.0); PROTEIN,URINE 2+ (NEGATIVE); UROBILINOGEN,URINE NORMAL MG/DL (0.0-1.0)
[2017-05-22 18:31] LABS: BASOPHILS % (AUTO) 0.4 % (0.0-2.0); EOSINOPHILS % (AUTO) 1.6 % (0.0-3.0); LYMPHOCYTES % (AUTO) 25.1 % (20.0-45.0); MEAN CORPUSCULAR HEMOGLOBIN 27.7 PG (27.0-31.0); MEAN CORPUSCULAR HGB CONC 30.2 G/DL (32.0-36.0); MEAN CORPUSCULAR VOLUME 92 FL (80-99); MEAN PLATELET VOLUME 7.4 FL (6.5-10.1); MONOCYTES % (AUTO) 8.4 % (1.0-10.0); NEUTROPHILS % (AUTO) 64.5 % (45.0-75.0); PLATELET COUNT 254 K/UL (150-450); RED BLOOD COUNT 2.95 M/UL (4.70-6.10); RED CELL DISTRIBUTION WIDTH 15.2 % (11.6-14.8); WHITE BLOOD COUNT 12.6 K/UL (4.8-10.8)
[2017-05-22 18:36] LABS: INR 1.2 (0.9-1.1); PROTHROMBIN TIME 12.1 SEC (9.30-11.50)
[2017-05-22 18:49] LABS: RBC,URINE 0-2 /HPF (0 - 0); WBC,URINE 0-2 /HPF (0 - 0)
[2017-05-22 19:21] LABS: ALANINE AMINOTRANSFERASE 175 U/L (12-78); ALBUMIN/GLOBULIN RATIO 0.9 (1.0-2.7); AMYLASE 71 U/L (25-115); ANION GAP 9 mmol/L (5-15); ASPARTATE AMINO TRANSFERASE 79 U/L (15-37); BILIRUBIN,DIRECT 0.2 MG/DL (0.0-0.3); CALCIUM 8.5 MG/DL (8.5-10.1); CARBON DIOXIDE 28 MMOL/L (21-32); CHLORIDE 103 MMOL/L (98-107); CKMB 1.9 NG/ML (0.0-3.6); CREATININE 0.7 MG/DL (0.55-1.30); GLOMERULAR FILTRATION RATE > 60 mL/min (>60); LACTATE DEHYDROGENASE 362 U/L (81-234); LIPASE 159 U/L (73-393); MAGNESIUM 2.4 MG/DL (1.8-2.4); PHOSPHORUS 2.7 MG/DL (2.5-4.9); POTASSIUM 3.3 MMOL/L (3.5-5.1); SODIUM 140 MMOL/L (136-145); TOTAL PROTEIN 8.3 G/DL (6.4-8.2)
[2017-05-22] MEDS: Dextrose 10% 1,000 ML IV SCH (20:40)
[2017-05-22] MEDS: methylPREDNISolone Sod Succ 500 MG in NS 110 ML IVPB SCH (21:56)
[2017-05-22] MEDS ORDERED: methylPREDNISolone Sod Succ 500 MG in NS 110 ML IVPB ONE (22:00)
[2017-05-22] MEDS: Zosyn 3.375gm/50ml Premix 50 ML IVPB SCH (22:25)
[2017-05-23] VITALS (24 sets, daily range): BP systolic 109–197; BP diastolic 62–123
[2017-05-23 00:18] LABS: ABG PCO2 48.3 mmHg (35.0-45.0)
[2017-05-23 00:19] LABS: ABG BASE EXCESS -2.3
[2017-05-23 01:05] LABS: BASOPHILS % (AUTO) 0.6 % (0.0-2.0); EOSINOPHILS % (AUTO) 1.6 % (0.0-3.0); LYMPHOCYTES % (AUTO) 18.3 % (20.0-45.0); MEAN CORPUSCULAR HEMOGLOBIN 27.7 PG (27.0-31.0); MEAN CORPUSCULAR HGB CONC 30.8 G/DL (32.0-36.0); MEAN CORPUSCULAR VOLUME 90 FL (80-99); MEAN PLATELET VOLUME 8.2 FL (6.5-10.1); NEUTROPHILS % (AUTO) 74.5 % (45.0-75.0); PLATELET COUNT 271 K/UL (150-450); RED BLOOD COUNT 3.21 M/UL (4.70-6.10); RED CELL DISTRIBUTION WIDTH 15.3 % (11.6-14.8); WHITE BLOOD COUNT 15.2 K/UL (4.8-10.8)
[2017-05-23 01:08] LABS: INR 1.1 (0.9-1.1)
[2017-05-23 01:22] LABS: ALANINE AMINOTRANSFERASE 162 U/L (12-78); AMYLASE 73 U/L (25-115); ANION GAP 7 mmol/L (5-15); ASPARTATE AMINO TRANSFERASE 85 U/L (15-37); BILIRUBIN,DIRECT 0.2 MG/DL (0.0-0.3); CALCIUM 8.6 MG/DL (8.5-10.1); CARBON DIOXIDE 27 MMOL/L (21-32); CHLORIDE 103 MMOL/L (98-107); CREATININE 0.6 MG/DL (0.55-1.30); GLOMERULAR FILTRATION RATE > 60 mL/min (>60); LACTATE DEHYDROGENASE 366 U/L (81-234); LIPASE 129 U/L (73-393); MAGNESIUM 2.2 MG/DL (1.8-2.4); PHOSPHORUS 1.9 MG/DL (2.5-4.9); POTASSIUM 3.5 MMOL/L (3.5-5.1); SODIUM 137 MMOL/L (136-145); TOTAL PROTEIN 8.8 G/DL (6.4-8.2)
[2017-05-23] MEDS: Vasopressin 100 UNITS in NS 95 ML IV SCH (05:14)
[2017-05-23] MEDS: Zosyn 3.375gm/50ml Premix 50 ML IVPB SCH ×3 (05:43→21:45)
[2017-05-23] MEDS: methylPREDNISolone Sod Succ 500 MG in NS 110 ML IVPB SCH ×3 (05:45→21:44)
[2017-05-23 05:52] LABS: ABG PCO2 36.8 mmHg (35.0-45.0)
[2017-05-23 05:53] LABS: ABG BASE EXCESS -3.8
[2017-05-23] MEDS ORDERED: Potassium Phosphate 20 MM in NS 275 ML IV ONE (06:00)
[2017-05-23 06:30] LABS: MEAN CORPUSCULAR HEMOGLOBIN 27.5 PG (27.0-31.0); MEAN CORPUSCULAR HGB CONC 30.7 G/DL (32.0-36.0); MEAN CORPUSCULAR VOLUME 90 FL (80-99); PLATELET COUNT 280 K/UL (150-450); RED CELL DISTRIBUTION WIDTH 15.2 % (11.6-14.8); WHITE BLOOD COUNT 11.3 K/UL (4.8-10.8)
[2017-05-23 06:32] LABS: INR 1.1 (0.9-1.1); PROTHROMBIN TIME 11.9 SEC (9.30-11.50)
[2017-05-23 07:07] LABS: ALANINE AMINOTRANSFERASE 165 U/L (12-78); AMYLASE 73 U/L (25-115); ANION GAP 8 mmol/L (5-15); ASPARTATE AMINO TRANSFERASE 77 U/L (15-37); BILIRUBIN,DIRECT 0.2 MG/DL (0.0-0.3); CALCIUM 9.4 MG/DL (8.5-10.1); CARBON DIOXIDE 28 MMOL/L (21-32); CHLORIDE 100 MMOL/L (98-107); CKMB 2.4 NG/ML (0.0-3.6); CREATININE 0.7 MG/DL (0.55-1.30); GLOMERULAR FILTRATION RATE > 60 mL/min (>60); LACTATE DEHYDROGENASE 383 U/L (81-234); LIPASE 113 U/L (73-393); MAGNESIUM 2.1 MG/DL (1.8-2.4); PHOSPHORUS 1.9 MG/DL (2.5-4.9); POTASSIUM 4.4 MMOL/L (3.5-5.1); SODIUM 135 MMOL/L (136-145); TOTAL PROTEIN 9.6 G/DL (6.4-8.2)
[2017-05-23 07:09] LABS: APPEARANCE,URINE CLEAR; KETONES,URINE NEGATIVE (NEGATIVE); LEUKOCYTE ESTERASE ,URINE NEGATIVE (NEGATIVE); NITRITE,URINE NEGATIVE (NEGATIVE); PH,URINE 8 (4.5-8.0); PROTEIN,URINE 2+ (NEGATIVE); UROBILINOGEN,URINE NORMAL MG/DL (0.0-1.0)
[2017-05-23 07:38] LABS: BACTERIA,URINE OCCASIONAL /HPF; RBC,URINE 0-2 /HPF (0 - 0); SQUAMOUS EPITHELIAL CELL,UR OCCASIONAL /LPF (NONE/OCC); WBC,URINE 0-2 /HPF (0 - 0)
[2017-05-23 08:37] LABS: BAND NEUTROPHILS % (MANUAL) 0 % (0-8); BASOPHILS % (MANUAL) 0 % (0-2); EOSINOPHILS % (MANUAL) 0 % (0-3); LYMPHOCYTES % (MANUAL) 9 % (20-45); NEUTROPHILS % (MANUAL) 90 % (45-75); PLATELET ESTIMATE ADEQUATE; PLATELET MORPHOLOGY NORMAL; TOTAL CELLS COUNTED 100
--- NOTE | 2017-05-23 09:31 | Diagnostic Imaging Report ---
Indication: Evaluation for organ donation Technique: Continuous helical transaxial imaging of the abdomen and pelvis was obtained from the lung bases to the pubic symphysis. No IV contrast was administered. Coronal 2-D reformats were also obtained. Study obtained in a Siemens sensation [address] Total Dose length Product (DLP): [address] Dose Index Volume (CTDIvol): 14.6, 0.15 mGy Comparison: None Findings: Tracheostomy is noted. There is no adenopathy present. Posterior basilar atelectasis versus pneumonia demonstrated with air bronchograms and streaky parenchymal opacities. Gastrostomy noted. Suggestion of small stones versus gallbladder sludge. No obvious abnormalities of solid organs identified. There is no evidence of hepatomegaly or splenomegaly. Evaluation of solid organs is limited on a noncontrast examination. There is a small moderate free fluid in the pelvis. Jim catheter is noted. There is no evidence of bowel obstruction. No nephrolithiasis identified. No hydronephrosis identified. Mild subcutaneous edema noted within the hip and thighs. Right femoral venous central catheter noted in good position. Impression: Findings as above. Infiltrate versus atelectasis at the lung bases. No acute findings otherwise as described above. [facility] has communicated the preliminary results to the Emergency Department. Their findings are largely concordant with this report. The CT scanner at [facility] is accredited by the [employer] and the scans are performed using dose optimization techniques as appropriate to a performed exam including Automatic Exposure control.
[2017-05-23 09:47] LABS: ABG ALLEN TEST POSITIVE; ABG BASE EXCESS -5.9; ABG PCO2 44.3 mmHg (35.0-45.0)
[2017-05-23 10:23] LABS: ABG PCO2 48.7 mmHg (35.0-45.0)
[2017-05-23 10:24] LABS: ABG ALLEN TEST POSITIVE; ABG BASE EXCESS -6.3
[2017-05-23] MEDS: niCARdipine HCl 200 ML IV SCH ×2 (10:40→20:34)
--- NOTE | 2017-05-23 10:46 | Diagnostic Imaging Report ---
Indication: Dyspnea Comparison: 05/23/17 formed at 00:17 A single view chest radiograph was obtained. Findings: Cardio mediastinal silhouette is stable. Streaky basilar densities are again demonstrated unchanged. Tracheostomy is stable. Impression: No change from the prior exam done about 5 hours earlier.
--- NOTE | 2017-05-23 10:47 | Diagnostic Imaging Report ---
Indication: Dyspnea Comparison: 05/22/17 A single view chest radiograph was obtained. Findings: Basilar densities again demonstrated. Cardiomediastinal silhouette is stable. Tracheostomy again noted. Impression: No change from the previous day
[2017-05-23] MEDS ORDERED: Tubing IV Secondary IV ONE ×3 (10:55→15:12)
[2017-05-23 11:04] LABS: ABG ALLEN TEST POSITIVE; ABG BASE EXCESS -5.8; ABG PCO2 70.8 mmHg (35.0-45.0)
--- NOTE | 2017-05-23 11:10 | Diagnostic Imaging Report ---
Indication: Dyspnea Comparison: 05/22/17 and earlier time A single view chest radiograph was obtained. Findings: Mild basilar atelectasis versus infiltrate demonstrated. Tracheostomy noted. Impression: No change from the previous exam
--- NOTE | 2017-05-23 11:43 | Diagnostic Imaging Report ---
Indication: Dyspnea Comparison: 05/23/17 at 05:57 A single view chest radiograph was obtained at 10:53. Findings: Mild patchy infiltrate versus atelectasis noted at the lung bases unchanged. This could also represent scarring. The heart size is stable. Tracheostomy is again noted. Impression: No change from the prior exam
[2017-05-23 12:13] LABS: ABG ALLEN TEST POSITIVE; ABG BASE EXCESS -3.1; ABG PCO2 56.1 mmHg (35.0-45.0)
--- NOTE | 2017-05-23 12:41 | Cardiology Report ---
APPROVED REPORT EXAM: Two-dimensional and M-mode echocardiogram with Doppler and color Doppler. INDICATION Ejection Fraction M-Mode DIMENSIONS IVSd1.1 (0.7-1.1cm)Left Atrium (MM)3.0 (1.6-4.0cm) LVDd3.6 (3.5-5.6cm)Aortic Root2.8 (2.0-3.7cm) PWd1.1 (0.7-1.1cm)Aortic Cusp Exc.2.0 (1.5-2.0cm) LVDs1.9 (2.5-4.0cm) PWs1.2 cm Normal left ventricular chamber size, mildly depressed systolic function and wall motion. Left ventricular ejection fraction estimated to be 50 %. No evidence of left ventricular hypertrophy. Anterior Echo-free space, may be due to pericardial fat or effusion. All other cardiac chamber sizes are within normal limits. Normal appearing aortic, mitral, puImonic and tricuspid valves. IVC dilated at 2.2 cm without physiologic collapse, estimated RAP is 15 mmHg. A color flow and spectral Doppler study was performed and revealed: No aortic regurgitation. Mild mitral regurgitation. Mitral diastolic velocities suggest reduced left ventricular relaxation c/w mild LV diastolic dysfunction (Grade I ). Trace tricuspid regurgitation. Tricuspid systolic velocities suggests peak right ventricular systolic pressure of 22 mmHg. No pulmonic regurgitation present.
[2017-05-23 12:56] LABS: MEAN CORPUSCULAR HEMOGLOBIN 29.3 PG (27.0-31.0); MEAN CORPUSCULAR HGB CONC 32.9 G/DL (32.0-36.0); MEAN CORPUSCULAR VOLUME 89 FL (80-99); PLATELET COUNT 352 K/UL (150-450); RED BLOOD COUNT 3.56 M/UL (4.70-6.10); RED CELL DISTRIBUTION WIDTH 15.5 % (11.6-14.8); WHITE BLOOD COUNT 8.6 K/UL (4.8-10.8)
[2017-05-23 13:12] LABS: INR 1.2 (0.9-1.1); PROTHROMBIN TIME 12.2 SEC (9.30-11.50)
[2017-05-23 13:25] LABS: ALANINE AMINOTRANSFERASE 160 U/L (12-78); ALBUMIN/GLOBULIN RATIO 1.1 (1.0-2.7); AMYLASE 72 U/L (25-115); ANION GAP 9 mmol/L (5-15); ASPARTATE AMINO TRANSFERASE 66 U/L (15-37); BILIRUBIN,DIRECT 0.2 MG/DL (0.0-0.3); CALCIUM 9.2 MG/DL (8.5-10.1); CARBON DIOXIDE 27 MMOL/L (21-32); CHLORIDE 99 MMOL/L (98-107); CKMB 2.3 NG/ML (0.0-3.6); CREATININE 0.6 MG/DL (0.55-1.30); GLOMERULAR FILTRATION RATE > 60 mL/min (>60); LACTATE DEHYDROGENASE 407 U/L (81-234); LIPASE 100 U/L (73-393); MAGNESIUM 2.1 MG/DL (1.8-2.4); PHOSPHORUS 4.5 MG/DL (2.5-4.9); POTASSIUM 5.1 MMOL/L (3.5-5.1); SODIUM 135 MMOL/L (136-145); TOTAL PROTEIN 10.5 G/DL (6.4-8.2)
[2017-05-23 13:49] LABS: LYMPHOCYTES % (MANUAL) 14 % (20-45); NEUTROPHILS % (MANUAL) 84 % (45-75); TOTAL CELLS COUNTED 100
[2017-05-23 13:50] LABS: BAND NEUTROPHILS % (MANUAL) 0 % (0-8); BASOPHILS % (MANUAL) 0 % (0-2); EOSINOPHILS % (MANUAL) 0 % (0-3); PLATELET ESTIMATE ADEQUATE; PLATELET MORPHOLOGY NORMAL
--- NOTE | 2017-05-23 15:11 | General Surgery Progress Note ---
General Surgery-Progress Note Subjective Procedure Performed right femoral central line insertion; left radial arterial line insertion Additional Comments patient seen and examined at bedside. lines evaluated. left radial arterial line functional without complications. site clean and dry with dressings. right femoral triple lumen catheter functional and all ports functional. site clean and dry with dressings. Objective Last 24 Hour Vital Signs Date Time Temp Pulse Resp B/P (MAP) Pulse Ox O2 Delivery O2 Flow Rate FiO2 05/23/17 15:00 92 10 155/85 100 Mechanical Ventilator 30 05/23/17 14:00 92 10 123/72 100 Mechanical Ventilator 30 05/23/17 13:00 92 10 115/63 100 Mechanical Ventilator 30 05/23/17 12:49 93 10 30 05/23/17 12:00 96 05/23/17 12:00 30 05/23/17 12:00 96.1 93 10 117/66 100 Mechanical Ventilator 30 05/23/17 11:06 102 10 30 05/23/17 11:00 106 10 157/88 100 Mechanical Ventilator 30 05/23/17 10:40 207/115 05/23/17 10:00 102 10 160/89 100 Mechanical Ventilator 30 05/23/17 09:51 104 12 40 05/23/17 09:30 96 10 30 05/23/17 09:00 103 10 197/116 100 Mechanical Ventilator 30 05/23/17 08:00 30 05/23/17 08:00 95 05/23/17 08:00 97.4 96 10 166/93 100 Mechanical Ventilator 30 05/23/17 07:27 88 10 30 05/23/17 07:00 86 10 133/73 100 Mechanical Ventilator 30 05/23/17 06:31 177/101 05/23/17 06:06 99 10 180/123 100 Mechanical Ventilator 30 05/23/17 05:29 80 10 30 05/23/17 05:00 82 10 149/104 100 Mechanical Ventilator 30 05/23/17 04:00 95.0 76 10 118/79 100 Mechanical Ventilator 30 05/23/17 04:00 75 05/23/17 04:00 30 05/23/17 03:00 80 10 144/109 100 Mechanical Ventilator 30 05/23/17 02:34 73 10 30 05/23/17 02:00 91 10 145/107 100 Mechanical Ventilator 30 05/23/17 01:25 75 10 30 05/23/17 01:00 80 10 130/94 100 Mechanical Ventilator 30 05/23/17 00:00 30 05/23/17 00:00 96.0 94 10 124/92 100 Mechanical Ventilator 30 05/23/17 00:00 98 05/22/17 23:25 78 10 30 05/22/17 23:00 85 10 122/71 100 Mechanical Ventilator 30 05/22/17 22:00 79 10 122/71 100 Mechanical Ventilator 30 05/22/17 21:00 78 10 30 05/22/17 21:00 78 10 129/76 100 Mechanical Ventilator 30 05/22/17 20:00 78 05/22/17 20:00 30 05/22/17 20:00 97.8 76 10 122/72 100 Mechanical Ventilator 30 05/22/17 19:10 77 10 30 05/22/17 19:00 80 10 136/82 100 Mechanical Ventilator 30 05/22/17 18:00 78 10 123/73 100 Mechanical Ventilator 30 05/22/17 17:30 75 10 30 05/22/17 17:20 116/67 05/22/17 17:00 80 10 109/79 100 Mechanical Ventilator 30 05/22/17 16:00 97.8 81 10 108/59 100 Mechanical Ventilator 30 05/22/17 16:00 81 05/22/17 16:00 30 I&O Intake and Output 05/23/17 05/24/17 19:00 07:00 Intake Total 659.068 ml Output Total 2250 ml Balance -1590.932 ml Intake IV Total 659.068 ml Output Urine Total 2250 ml # Bowel Movements 1 Dressing: dry Wound: clean Drains: none Laboratory Tests Test 05/22/17 18:00 05/23/17 00:00 05/23/17 05:45 05/23/17 06:00 White Blood Count 12.6 K/UL (4.8-10.8) H 15.2 K/UL (4.8-10.8) H 11.3 K/UL (4.8-10.8) H Red Blood Count 2.95 M/UL (4.70-6.10) L 3.21 M/UL (4.70-6.10) L 3.30 M/UL (4.70-6.10) L Hemoglobin 8.2 G/DL (14.2-18.0) L 8.9 G/DL (14.2-18.0) L 9.1 G/DL (14.2-18.0) L Hematocrit 27.1 % (42.0-52.0) L 28.8 % (42.0-52.0) L 29.6 % (42.0-52.0) L Mean Corpuscular Volume 92 FL (80-99) 90 FL (80-99) 90 FL (80-99) Mean Corpuscular Hemoglobin 27.7 PG (27.0-31.0) 27.7 PG (27.0-31.0) 27.5 PG (27.0-31.0) Mean Corpuscular Hemoglobin Concent 30.2 G/DL (32.0-36.0) L 30.8 G/DL (32.0-36.0) L 30.7 G/DL (32.0-36.0) L Red Cell Distribution Width 15.2 % (11.6-14.8) H 15.3 % (11.6-14.8) H 15.2 % (11.6-14.8) H Platelet Count 254 K/UL (150-450) 271 K/UL (150-450) 280 K/UL (150-450) Mean Platelet Volume 7.4 FL (6.5-10.1) 8.2 FL (6.5-10.1) 8.0 FL (6.5-10.1) Neutrophils (%) (Auto) 64.5 % (45.0-75.0) 74.5 % (45.0-75.0) % (45.0-75.0) Lymphocytes (%) (Auto) 25.1 % (20.0-45.0) 18.3 % (20.0-45.0) L % (20.0-45.0) Monocytes (%) (Auto) 8.4 % (1.0-10.0) 5.0 % (1.0-10.0) % (1.0-10.0) Eosinophils (%) (Auto) 1.6 % (0.0-3.0) 1.6 % (0.0-3.0) % (0.0-3.0) Basophils (%) (Auto) 0.4 % (0.0-2.0) 0.6 % (0.0-2.0) % (0.0-2.0) Prothrombin Time 12.1 SEC (9.30-11.50) H 12.0 SEC (9.30-11.50) H 11.9 SEC (9.30-11.50) H Prothromb Time International Ratio 1.2 (0.9-1.1) H 1.1 (0.9-1.1) 1.1 (0.9-1.1) Activated Partial Thromboplast Time 28 SEC (23-33) 30 SEC (23-33) 28 SEC (23-33) Urine Color Pale yellow Pale yellow Urine Appearance Clear Clear Urine pH 8 (4.5-8.0) 8 (4.5-8.0) Urine Specific Dyer 1.010 (1.005-1.035) 1.010 (1.005-1.035) Urine Protein 2+ (NEGATIVE) H 2+ (NEGATIVE) H Urine Glucose (UA) Negative (NEGATIVE) Negative (NEGATIVE) Urine Ketones Negative (NEGATIVE) Negative (NEGATIVE) Urine Occult Blood 1+ (NEGATIVE) H Negative (NEGATIVE) Urine Nitrite Negative (NEGATIVE) Negative (NEGATIVE) Urine Bilirubin Negative (NEGATIVE) Negative (NEGATIVE) Urine Urobilinogen Normal MG/DL (0.0-1.0) Normal MG/DL (0.0-1.0) Urine Leukocyte Esterase 1+ (NEGATIVE) H Negative (NEGATIVE) Urine RBC 0-2 /HPF (0 - 0) H 0-2 /HPF (0 - 0) H Urine WBC 0-2 /HPF (0 - 0) 0-2 /HPF (0 - 0) Urine Squamous Epithelial Cells None /LPF (NONE/OCC) Occasional /LPF Urine Bacteria None /HPF (NONE) Occasional /HPF (NONE) Arterial Blood pH 7.375 (7.350-7.450) 7.315 (7.350-7.450) 7.374 (7.350-7.450) Arterial Blood Partial Pressure CO2 46.6 mmHg (35.0-45.0) H 48.3 mmHg (35.0-45.0) H 36.8 mmHg (35.0-45.0) Arterial Blood Partial Pressure O2 151.9 mmHg (75.0-100.0) H 129.8 mmHg (75.0-100.0) H 132.9 mmHg (75.0-100.0) H Arterial Blood HCO3 26.6 mmol/L (22.0-26.0) H 24.0 mmol/L (22.0-26.0) 21.0 mmol/L (22.0-26.0) L Arterial Blood Oxygen Saturation 98.2 % (92.0-98.0) H 98.0 % (92.0-98.0) 98.2 % (92.0-98.0) H Arterial Blood Base Excess 1.2 -2.3 -3.8 Marcus Test Positive N/a N/a Sodium Level 140 MMOL/L (136-145) 137 MMOL/L (136-145) 135 MMOL/L (136-145) L Potassium Level 3.3 MMOL/L (3.5-5.1) L 3.5 MMOL/L (3.5-5.1) 4.4 MMOL/L (3.5-5.1) Chloride Level 103 MMOL/L (98-107) 103 MMOL/L (98-107) 100 MMOL/L (98-107) Carbon Dioxide Level 28 MMOL/L (21-32) 27 MMOL/L (21-32) 28 MMOL/L (21-32) Anion Gap 9 mmol/L (5-15) 7 mmol/L (5-15) 8 mmol/L (5-15) Blood Urea Nitrogen 25 mg/dL (7-18) H 23 mg/dL (7-18) H 22 mg/dL (7-18) H Creatinine 0.7 MG/DL (0.55-1.30) 0.6 MG/DL (0.55-1.30) 0.7 MG/DL (0.55-1.30) Estimat Glomerular Filtration Rate > 60 mL/min (>60) > 60 mL/min (>60) > 60 mL/min (>60) Glucose Level 74 MG/DL (74-106) 92 MG/DL (74-106) 116 MG/DL (74-106) H Lactic Acid Level 1.40 mmol/L (0.66-2.22) 0.90 mmol/L (0.66-2.22) 1.40 mmol/L (0.66-2.22) Calcium Level 8.5 MG/DL (8.5-10.1) 8.6 MG/DL (8.5-10.1) 9.4 MG/DL (8.5-10.1) Phosphorus Level 2.7 MG/DL (2.5-4.9) 1.9 MG/DL (2.5-4.9) L 1.9 MG/DL (2.5-4.9) L Magnesium Level 2.4 MG/DL (1.8-2.4) 2.2 MG/DL (1.8-2.4) 2.1 MG/DL (1.8-2.4) Total Bilirubin 0.5 MG/DL (0.2-1.0) 0.4 MG/DL (0.2-1.0) 0.5 MG/DL (0.2-1.0) Direct Bilirubin 0.2 MG/DL (0.0-0.3) 0.2 MG/DL (0.0-0.3) 0.2 MG/DL (0.0-0.3) Gamma Glutamyl Transpeptidase 298 U/L (5-85) H 339 U/L (5-85) H 358 U/L (5-85) H Aspartate Amino Transf (AST/SGOT) 79 U/L (15-37) H 85 U/L (15-37) H 77 U/L (15-37) H Alanine Aminotransferase (ALT/SGPT) 175 U/L (12-78) H 162 U/L (12-78) H 165 U/L (12-78) H Alkaline Phosphatase 431 U/L (46-116) H 441 U/L (46-116) H 460 U/L (46-116) H Lactate Dehydrogenase 362 U/L (81-234) H 366 U/L (81-234) H 383 U/L (81-234) H Total Creatine Kinase 46 U/L (26-308) 42 U/L (26-308) 41 U/L (26-308) Creatine Kinase MB 1.9 NG/ML (0.0-3.6) 2.0 NG/ML (0.0-3.6) 2.4 NG/ML (0.0-3.6) Creatine Kinase MB Relative Index 4.1 4.7 5.8 Troponin I 0.001 ng/mL (0.000-0.056) 0.000 ng/mL (0.000-0.056) 0.000 ng/mL (0.000-0.056) Pro-B-Type Natriuretic Peptide 5502 pg/mL (0-125) H 2992 pg/mL (0-125) H 2817 pg/mL (0-125) H Total Protein 8.3 G/DL (6.4-8.2) H 8.8 G/DL (6.4-8.2) H 9.6 G/DL (6.4-8.2) H Albumin 4.0 G/DL (3.4-5.0) 4.4 G/DL (3.4-5.0) 4.9 G/DL (3.4-5.0) Globulin 4.3 g/dL 4.4 g/dL 4.7 g/dL Albumin/Globulin Ratio 0.9 (1.0-2.7) L 1.0 (1.0-2.7) 1.0 (1.0-2.7) Amylase Level 71 U/L (25-115) 73 U/L (25-115) 73 U/L (25-115) Lipase 159 U/L (73-393) 129 U/L (73-393) 113 U/L (73-393) Differential Total Cells Counted 100 Neutrophils % (Manual) 90 % (45-75) H Lymphocytes % (Manual) 9 % (20-45) L Monocytes % (Manual) 1 % (1-10) Eosinophils % (Manual) 0 % (0-3) Basophils % (Manual) 0 % (0-2) Band Neutrophils 0 % (0-8) Platelet Estimate Adequate Platelet Morphology Normal Test 05/23/17 09:40 05/23/17 10:15 05/23/17 10:50 05/23/17 12:00 Arterial Blood pH 7.282 (7.350-7.450) 7.247 (7.350-7.450) 7.146 (7.350-7.450) 7.257 (7.350-7.450) Arterial Blood Partial Pressure CO2 44.3 mmHg (35.0-45.0) 48.7 mmHg (35.0-45.0) H 70.8 mmHg (35.0-45.0) *H 56.1 mmHg (35.0-45.0) *H Arterial Blood Partial Pressure O2 445.0 mmHg (75.0-100.0) H 187.8 mmHg (75.0-100.0) H 538.3 mmHg (75.0-100.0) H 136.2 mmHg (75.0-100.0) H Arterial Blood HCO3 20.4 mmol/L (22.0-26.0) L 20.7 mmol/L (22.0-26.0) L 23.9 mmol/L (22.0-26.0) 24.4 mmol/L (22.0-26.0) Arterial Blood Oxygen Saturation 99.0 % (92.0-98.0) H 98.4 % (92.0-98.0) H 99.4 % (92.0-98.0) H 98.5 % (92.0-98.0) H Arterial Blood Base Excess -5.9 -6.3 -5.8 -3.1 Marcus Test Positive Positive Positive Positive White Blood Count 8.6 K/UL (4.8-10.8) Red Blood Count 3.56 M/UL (4.70-6.10) L Hemoglobin 10.4 G/DL (14.2-18.0) L Hematocrit 31.7 % (42.0-52.0) L Mean Corpuscular Volume 89 FL (80-99) Mean Corpuscular Hemoglobin 29.3 PG (27.0-31.0) Mean Corpuscular Hemoglobin Concent 32.9 G/DL (32.0-36.0) Red Cell Distribution Width 15.5 % (11.6-14.8) H Platelet Count 352 K/UL (150-450) Mean Platelet Volume 9.0 FL (6.5-10.1) Neutrophils (%) (Auto) % (45.0-75.0) Lymphocytes (%) (Auto) % (20.0-45.0) Monocytes (%) (Auto) % (1.0-10.0) Eosinophils (%) (Auto) % (0.0-3.0) Basophils (%) (Auto) % (0.0-2.0) Differential Total Cells Counted 100 Neutrophils % (Manual) 84 % (45-75) H Lymphocytes % (Manual) 14 % (20-45) L Monocytes % (Manual) 2 % (1-10) Eosinophils % (Manual) 0 % (0-3) Basophils % (Manual) 0 % (0-2) Band Neutrophils 0 % (0-8) Platelet Estimate Adequate Platelet Morphology Normal Prothrombin Time 12.2 SEC (9.30-11.50) H Prothromb Time International Ratio 1.2 (0.9-1.1) H Activated Partial Thromboplast Time 29 SEC (23-33) Sodium Level 135 MMOL/L (136-145) L Potassium Level 5.1 MMOL/L (3.5-5.1) Chloride Level 99 MMOL/L (98-107) Carbon Dioxide Level 27 MMOL/L (21-32) Anion Gap 9 mmol/L (5-15) Blood Urea Nitrogen 22 mg/dL (7-18) H Creatinine 0.6 MG/DL (0.55-1.30) Estimat Glomerular Filtration Rate > 60 mL/min (>60) Glucose Level 153 MG/DL (74-106) H Lactic Acid Level 1.20 mmol/L (0.66-2.22) Calcium Level 9.2 MG/DL (8.5-10.1) Phosphorus Level 4.5 MG/DL (2.5-4.9) Magnesium Level 2.1 MG/DL (1.8-2.4) Total Bilirubin 0.6 MG/DL (0.2-1.0) Direct Bilirubin 0.2 MG/DL (0.0-0.3) Gamma Glutamyl Transpeptidase 380 U/L (5-85) H Aspartate Amino Transf (AST/SGOT) 66 U/L (15-37) H Alanine Aminotransferase (ALT/SGPT) 160 U/L (12-78) H Alkaline Phosphatase 475 U/L (46-116) H Lactate Dehydrogenase 407 U/L (81-234) H Total Creatine Kinase 36 U/L (26-308) Creatine Kinase MB 2.3 NG/ML (0.0-3.6) Creatine Kinase MB Relative Index 6.3 Troponin I 0.000 ng/mL (0.000-0.056) Pro-B-Type Natriuretic Peptide 3197 pg/mL (0-125) H Total Protein 10.5 G/DL (6.4-8.2) H Albumin 5.5 G/DL (3.4-5.0) H Globulin 5.0 g/dL Albumin/Globulin Ratio 1.1 (1.0-2.7) Amylase Level 72 U/L (25-115) Lipase 100 U/L (73-393) Plan Problems: (1) postanoxic brain edema with truncal herniation Assessment & Plan: Anoxic brain edema with herniation pronounced and currently organ donor. central and arterial line functional without complications since insertion. . Ady Trejo May 23, 2017 15:10
[2017-05-23] MEDS ORDERED: Tubing IV Blood Pump IV ONE (15:12)
[2017-05-23] MEDS ORDERED: NS 275ml ONE ×2 (15:12)
[2017-05-23] MEDS ORDERED: NS 500ML IV ONE (15:12)
[2017-05-23] MEDS ORDERED: D5LR 1000 ml IV ONE (15:12)
[2017-05-23] MEDS: Dextrose 10% 1,000 ML IV SCH (15:15)
[2017-05-23] MEDS: Vancomycin 1 GM in D5W 275 ML IVPB SCH (16:06)
[2017-05-23] MEDS: DOBUTamine 250mg/250ml Premix 250 ML IV SCH (16:21)
[2017-05-23] MEDS ORDERED: Vancomycin 1250mg/D5W 250ml 250 ML IVPB SCH (16:30)
[2017-05-23 18:06] LABS: ABG ALLEN TEST POSITIVE; ABG BASE EXCESS -1.1; ABG PCO2 42.7 mmHg (35.0-45.0)
[2017-05-23 18:29] LABS: BASOPHILS % (AUTO) 0.3 % (0.0-2.0); EOSINOPHILS % (AUTO) 0.1 % (0.0-3.0); LYMPHOCYTES % (AUTO) 13.8 % (20.0-45.0); MEAN CORPUSCULAR HEMOGLOBIN 27.9 PG (27.0-31.0); MEAN CORPUSCULAR HGB CONC 31.3 G/DL (32.0-36.0); MEAN CORPUSCULAR VOLUME 89 FL (80-99); MEAN PLATELET VOLUME 8.9 FL (6.5-10.1); MONOCYTES % (AUTO) 2.7 % (1.0-10.0); NEUTROPHILS % (AUTO) 83.1 % (45.0-75.0); PLATELET COUNT 269 K/UL (150-450); RED BLOOD COUNT 3.19 M/UL (4.70-6.10); RED CELL DISTRIBUTION WIDTH 14.8 % (11.6-14.8)
[2017-05-23 18:45] LABS: INR 1.1 (0.9-1.1); PROTHROMBIN TIME 11.9 SEC (9.30-11.50)
[2017-05-23 19:04] LABS: ALANINE AMINOTRANSFERASE 142 U/L (12-78); ALBUMIN/GLOBULIN RATIO 1.4 (1.0-2.7); AMYLASE 70 U/L (25-115); ANION GAP 15 mmol/L (5-15); ASPARTATE AMINO TRANSFERASE 46 U/L (15-37); BILIRUBIN,DIRECT 0.3 MG/DL (0.0-0.3); CALCIUM 9.2 MG/DL (8.5-10.1); CARBON DIOXIDE 24 MMOL/L (21-32); CHLORIDE 97 MMOL/L (98-107); CKMB 1.1 NG/ML (0.0-3.6); CREATININE 0.8 MG/DL (0.55-1.30); GLOMERULAR FILTRATION RATE > 60 mL/min (>60); LACTATE DEHYDROGENASE 326 U/L (81-234); LIPASE 98 U/L (73-393); PHOSPHORUS 3.5 MG/DL (2.5-4.9); POTASSIUM 4.7 MMOL/L (3.5-5.1); SODIUM 136 MMOL/L (136-145); TOTAL PROTEIN 10.1 G/DL (6.4-8.2)
[2017-05-23 19:15] LABS: REFLEX LACTIC ACID YES OR NO YES
[2017-05-23 19:40] LABS: APPEARANCE,URINE CLEAR; KETONES,URINE NEGATIVE (NEGATIVE); LEUKOCYTE ESTERASE ,URINE NEGATIVE (NEGATIVE); NITRITE,URINE NEGATIVE (NEGATIVE); PH,URINE 5 (4.5-8.0); PROTEIN,URINE 3+ (NEGATIVE); UROBILINOGEN,URINE NORMAL MG/DL (0.0-1.0)
[2017-05-23 19:49] LABS: BACTERIA,URINE FEW /HPF; RBC,URINE 0-2 /HPF (0 - 0); SQUAMOUS EPITHELIAL CELL,UR OCCASIONAL /LPF (NONE/OCC); WBC,URINE 0-2 /HPF (0 - 0)
[2017-05-24] VITALS (11 sets, daily range): BP systolic 111–157; BP diastolic 60–95
[2017-05-24 00:17] LABS: ABG BASE EXCESS -1.4; ABG PCO2 42.4 mmHg (35.0-45.0)
[2017-05-24 00:59] LABS: MEAN CORPUSCULAR HEMOGLOBIN 28.2 PG (27.0-31.0); MEAN CORPUSCULAR HGB CONC 31.9 G/DL (32.0-36.0); MEAN CORPUSCULAR VOLUME 89 FL (80-99); PLATELET COUNT 262 K/UL (150-450); RED BLOOD COUNT 3.06 M/UL (4.70-6.10); RED CELL DISTRIBUTION WIDTH 15.3 % (11.6-14.8); WHITE BLOOD COUNT 11.9 K/UL (4.8-10.8)
[2017-05-24 01:46] LABS: APPEARANCE,URINE CLEAR; KETONES,URINE NEGATIVE (NEGATIVE); LEUKOCYTE ESTERASE ,URINE NEGATIVE (NEGATIVE); NITRITE,URINE NEGATIVE (NEGATIVE); PH,URINE 5 (4.5-8.0); UROBILINOGEN,URINE NORMAL MG/DL (0.0-1.0)
[2017-05-24 01:48] LABS: PROTEIN,URINE NEGATIVE (NEGATIVE)
[2017-05-24 01:49] LABS: BACTERIA,URINE FEW /HPF; RBC,URINE 0-2 /HPF (0 - 0); WBC,URINE 0 /HPF (0 - 0)
[2017-05-24 01:50] LABS: ANION GAP 15 mmol/L (5-15); CARBON DIOXIDE 25 MMOL/L (21-32); CHLORIDE 98 MMOL/L (98-107); CREATININE 0.9 MG/DL (0.55-1.30); GLOMERULAR FILTRATION RATE > 60 mL/min (>60); POTASSIUM 4.4 MMOL/L (3.5-5.1); SODIUM 138 MMOL/L (136-145)
[2017-05-24 02:03] LABS: ALANINE AMINOTRANSFERASE 125 U/L (12-78); ALBUMIN/GLOBULIN RATIO 1.4 (1.0-2.7); AMYLASE 69 U/L (25-115); ASPARTATE AMINO TRANSFERASE 35 U/L (15-37); BILIRUBIN,DIRECT 0.3 MG/DL (0.0-0.3); CKMB 0.8 NG/ML (0.0-3.6); LACTATE DEHYDROGENASE 281 U/L (81-234); LIPASE 97 U/L (73-393)
[2017-05-24] MEDS: Vancomycin 1 GM in D5W 275 ML IVPB SCH (03:41)
[2017-05-24 06:03] LABS: ABG BASE EXCESS -3.8; ABG PCO2 40.3 mmHg (35.0-45.0)
[2017-05-24] MEDS: methylPREDNISolone Sod Succ 500 MG in NS 110 ML IVPB SCH (06:15)
[2017-05-24] MEDS: Zosyn 3.375gm/50ml Premix 50 ML IVPB SCH (06:15)
[2017-05-24 06:23] LABS: MEAN CORPUSCULAR HEMOGLOBIN 29.3 PG (27.0-31.0); MEAN CORPUSCULAR HGB CONC 33.5 G/DL (32.0-36.0); MEAN CORPUSCULAR VOLUME 87 FL (80-99); MEAN PLATELET VOLUME 7.3 FL (6.5-10.1); PLATELET COUNT 278 K/UL (150-450); RED BLOOD COUNT 2.92 M/UL (4.70-6.10); WHITE BLOOD COUNT 10.1 K/UL (4.8-10.8)
[2017-05-24 06:26] LABS: APPEARANCE,URINE CLEAR; KETONES,URINE NEGATIVE (NEGATIVE); LEUKOCYTE ESTERASE ,URINE 1+ (NEGATIVE); NITRITE,URINE NEGATIVE (NEGATIVE); PH,URINE 6.5 (4.5-8.0); PROTEIN,URINE 3+ (NEGATIVE); UROBILINOGEN,URINE NORMAL MG/DL (0.0-1.0)
[2017-05-24 06:32] LABS: INR 1.2 (0.9-1.1); PROTHROMBIN TIME 12.1 SEC (9.30-11.50)
[2017-05-24 06:35] LABS: BACTERIA,URINE FEW /HPF; COARSE GRANULAR CASTS,URINE 0-2 /LPF; RBC,URINE 0 /HPF (0 - 0); WBC,URINE 0-2 /HPF (0 - 0)
[2017-05-24 07:42] LABS: ANION GAP 18 mmol/L (5-15); CALCIUM 8.9 MG/DL (8.5-10.1); CARBON DIOXIDE 23 MMOL/L (21-32); CHLORIDE 99 MMOL/L (98-107); GLOMERULAR FILTRATION RATE > 60 mL/min (>60); POTASSIUM 3.9 MMOL/L (3.5-5.1); SODIUM 140 MMOL/L (136-145)
[2017-05-24 07:55] LABS: ALANINE AMINOTRANSFERASE 114 U/L (12-78); ALBUMIN/GLOBULIN RATIO 1.5 (1.0-2.7); AMYLASE 78 U/L (25-115); ASPARTATE AMINO TRANSFERASE 30 U/L (15-37); BILIRUBIN,DIRECT 0.3 MG/DL (0.0-0.3); CKMB 0.6 NG/ML (0.0-3.6); LACTATE DEHYDROGENASE 279 U/L (81-234); LIPASE 118 U/L (73-393); MAGNESIUM 2.2 MG/DL (1.8-2.4); PHOSPHORUS 4.2 MG/DL (2.5-4.9); TOTAL PROTEIN 10.1 G/DL (6.4-8.2)
--- NOTE | 2017-05-24 09:13 | Diagnostic Imaging Report ---
Indication: Shortness of breath Comparison: 5 hours earlier chest one view at 00 52 hours Findings: Single view the chest obtained at 0545 hrs. is obtained. Overall, there is no significant interval change from the prior exam. Cardiac size. Pulmonary vasculature is normal. Lungs are essentially clear. Some atelectasis and/or scarring is seen in the right midlung. Tracheostomy tube is noted. Impression: No significant change from prior exam 5 hours earlier.
--- NOTE | 2017-05-24 09:18 | Diagnostic Imaging Report ---
Indication: Shortness of breath Comparison: 05/23/2017 Findings: Single view the chest shows no significant change from prior exam. Cardiac size is normal. Pulmonary vasculature normal. Lungs are essentially clear. There is some scarring and/or atelectasis noted in the right midlung. Questionable patchy infiltrates in the right lung base. Left lung is clear. Tracheostomy tube is again noted. Impression: No significant change from prior exam one day earlier.
--- NOTE | 2017-05-24 09:43 | Diagnostic Imaging Report ---
Indication: Shortness of breath Comparison: Chest x-ray 8 hours earlier Findings: Single view the chest shows normal cardiac size. Pulmonary sutures normal. There is some scarring and/or atelectasis of the right midlung. This questionable infiltrate seen in the medial right lung base. Left lung is clear. Tracheostomy tube is noted. Impression: No significant change from prior exam it hours earlier. Questionable early infiltrate noted in the right medial lung base.
[2017-05-24] MEDS ORDERED: Heparin 5000 units/ml inj ONE (09:48)
[2017-05-24] MEDS ORDERED: Zemuron 50mg/5ml Inj IV ONE (10:45)
[2017-05-24] MEDS ORDERED: NS 275ml ONE (11:14)
[2017-05-24] MEDS ORDERED: Tubing IV Secondary IV ONE (11:14)
[2017-05-24 12:02] LABS: ABG BASE EXCESS -4.2; ABG PCO2 32.6 mmHg (35.0-45.0)
== END 2017-05-24 11:15 | disposition expired | DRG 951 ==
LOC: ICU 18:27
PROC: 03HY32Z Insertion of Monitoring Device into Upper Artery, Percutaneous Approach (ICD-10-PCS; principal; 2017-05-22)
PROC: 06HM33Z Insertion of Infusion Device into Right Femoral Vein, Percutaneous Approach (ICD-10-PCS; principal; 2017-05-22)
DX: Z52.9 Donor of unspecified organ or tissue (principal)
CPT/HCPCS: 31645; 36415; 36600; 71010; 71250; 74176; 80053; 81001; 82150; 82248; 82550; 82553; 82803; 82962; 82977; 83605; 83615; 83690; 83735; 83880; 84100; 84484; 85007; 85025; 85610; 85730; 86850; 86900; 86901; 86920; 87070; 87181; 87205; 93306; 94002; 94003; 94150; 94664